=== PATIENT | female | born 1970 | race African-American/Black ===

== ENCOUNTER 2017-04-06 16:30 | Emergency (ER) | payer OTHER ==
[2017-04-06 17:09] LABS: #Monocytes 0.4 thou/uL (0.11-0.59); #Neutrophils 2.3 thou/uL (1.40-6.50); %Basophils 0.4 % (0.0-1.0); %Eosinophils 0.9 % (0.0-10.0); %Lymphocytes 41.6 % (21.0-51.0); %Monocytes 8.4 % (0.0-10.0); Mean Platelet Volume 7.8 fL (7.4-10.4); Red Blood Cell (RBC) Count 4.26 mill/uL (4.20-5.40); White Blood Cell (WBC) Count 4.7 thou/uL (4.8-10.8)
[2017-04-06 17:11] LABS: Bilirubin Negative (Negative); Blood, Urine Negative (Negative); Glucose, Urine (Dipstick) Negative (Negative); Ketone, Urine Negative (Negative); Nitrite Negative (Negative); Protein, Urine (Dipstick) Negative (Neg-Trace); Urobilinogen 0.2 mg/dL (0.2-1.0)
[2017-04-06 17:15] LABS: Prothrombin Time 32.4 SEC (12.0-14.7)
[2017-04-06 17:29] LABS: ALT (SGPT) 15 U/L (8-55); AST (SGOT) 17 U/L (5-34); Alkaline Phosphatase 87 U/L (40-150); Anion Gap 11 mmol/L (10-20); BUN (Urea Nitrogen) 9 mg/dL (7.0-18.7); Bilirubin, Total 0.2 mg/dL (0.2-1.2); Calc. Creatinine Clearance 0 mL/min (70-130); Calcium 9.3 mg/dL (7.8-10.44); Carbon Dioxide 26 mmol/L (22-29); Chloride 105 mmol/L (98-107); Estimated GFR-MDRD 76; Globulin 4.3 g/dL (2.4-3.5); Protein, Total 8.2 g/dL (6.0-8.3)
== END 2017-04-06 18:52 | disposition home or self-care (01) ==
LOC: ERS 16:30
DX: M54.5 Low back pain (principal); I10 Essential (primary) hypertension; J45.909 Unspecified asthma, uncomplicated; Z86.73 Personal history of transient ischemic attack (TIA), and cerebral infarction without residual deficits; F31.9 Bipolar disorder, unspecified; Z86.718 Personal history of other venous thrombosis and embolism; Z79.899 Other long term (current) drug therapy; Z79.01 Long term (current) use of anticoagulants
CPT/HCPCS: 36415; 80053; 81003; 85025; 85610; 87086

== ENCOUNTER 2017-06-20 19:38 | Emergency (ER) | payer OTHER ==
[2017-06-20] MEDS ORDERED: Acetaminophen 500 MG TAB ONE (19:55)
[2017-06-20] MEDS ORDERED: Dexamethasone 10 MG/ML VIAL ONE (21:12)
--- NOTE | 2017-06-20 21:13 | RAD ---
PA AND LATERAL CHEST: Indication: History of cough and fever. Comparison: 10-18-14 FINDINGS: Lungs are clear. Cardiomediastinal silhouette is within normal limits. No acute osseous abnormality i s evident. IMPRESSION: No acute cardiopulmonary abnormality. POS: [facility]
== END 2017-06-20 20:52 | disposition home or self-care (01) ==
LOC: ERS 19:38
DX: J40 Bronchitis, not specified as acute or chronic (principal); I10 Essential (primary) hypertension; F31.9 Bipolar disorder, unspecified; F41.9 Anxiety disorder, unspecified; Z86.73 Personal history of transient ischemic attack (TIA), and cerebral infarction without residual deficits
CPT/HCPCS: 71046; 87804; 96372; J1100

== ENCOUNTER 2017-08-10 13:43 | Outpatient (CLI) | payer OTHER ==
--- NOTE | 2017-08-10 14:41 | ULT ---
LEFT LOWER EXTREMITY VENOUS DUPLEX ULTRASOUND INCLUDING COLOR AND SPECTRAL DOPPLER IMAGING: History: 47-year-old female with history of left leg edema and pain. FINDINGS: Exam performed from groin to ankle including visualized greater saphenous, common femoral, superficia l femoral, profunda femoral, popliteal, trifurcation and posterior tibial vein regions. There is norm al phasic flow with normal compressibility and normal augmentation. No intraluminal thrombus. IMPRESSION: 1. No evidence of deep venous thrombosis. Stable from prior study. POS: [facility]
== END 2017-08-10 13:44 | disposition home or self-care (01) ==
LOC: ULT 13:43
PROVIDERS: ATTEND Nurse Practitioner Family
DX: R60.0 Localized edema (principal)

== ENCOUNTER 2017-08-11 20:26 | Emergency (ER) | payer OTHER ==
[2017-08-11 20:54] LABS: #Eosinphils 0.3 thou/uL (0.0-0.7); #Lymphocytes 1.4 thou/uL (1.20-3.40); #Monocytes 0.5 thou/uL (0.11-0.59); #Neutrophils 4.1 thou/uL (1.40-6.50); %Basophils 0.7 % (0.0-1.0); %Eosinophils 4.1 % (0.0-10.0); %Lymphocytes 22.7 % (21.0-51.0); %Monocytes 8.1 % (0.0-10.0); %Neutrophils 64.4 % (42.0-75.0); Hemoglobin 12.9 g/dL (12.0-16.0); Mean Corpuscular HGB CONC 32.2 g/dL (32.0-36.0); Mean Corpuscular Hemoglobin 30.9 pg (27.0-31.0); Mean Corpuscular Volume 95.9 fl (81.0-99.0); Mean Platelet Volume 8.2 fL (7.4-10.4); Platelet Count 233 thou/uL (130-400); RBC Distribution Width 11.6 % (11.5-14.5); Red Blood Cell (RBC) Count 4.19 mill/uL (4.20-5.40); White Blood Cell (WBC) Count 6.4 thou/uL (4.8-10.8)
[2017-08-11 20:59] LABS: INR-International Normal Ratio 2.6; Prothrombin Time 29.3 SEC (12.0-14.7)
[2017-08-11 21:00] LABS: PTT 48.7 SEC (22.9-36.1)
[2017-08-11 21:16] LABS: ALT (SGPT) 13 U/L (8-55); AST (SGOT) 19 U/L (5-34); Albumin 4.1 g/dL (3.5-5.0); Alkaline Phosphatase 83 U/L (40-150); Anion Gap 12 mmol/L (10-20); BUN (Urea Nitrogen) 17 mg/dL (7.0-18.7); Bilirubin, Total 0.2 mg/dL (0.2-1.2); Calc. Creatinine Clearance 0 mL/min (70-130); Calcium 9.5 mg/dL (7.8-10.44); Carbon Dioxide 27 mmol/L (22-29); Chloride 105 mmol/L (98-107); Estimated GFR-MDRD 69; Globulin 4.3 g/dL (2.4-3.5); Glucose 108 mg/dL (70-105); Potassium 4.1 mmol/L (3.5-5.1); Protein, Total 8.4 g/dL (6.0-8.3); Sodium 140 mmol/L (136-145)
== END 2017-08-11 21:35 | disposition home or self-care (01) ==
LOC: ERS 20:26
DX: R04.0 Epistaxis (principal); I10 Essential (primary) hypertension; J45.909 Unspecified asthma, uncomplicated; F31.9 Bipolar disorder, unspecified; F41.9 Anxiety disorder, unspecified; Z86.718 Personal history of other venous thrombosis and embolism; Z79.899 Other long term (current) drug therapy
CPT/HCPCS: 36415; 80053; 85025; 85610; 85730; 99283

== ENCOUNTER 2017-08-16 07:29 | Emergency (ER) | payer OTHER ==
--- NOTE | 2017-08-16 08:12 | RAD ---
PA AND LATERAL CHEST RADIOGRAPH: Date: 08-16-17 History: Cough, trouble breathing. Comparison: 06-20-17 FINDINGS: The cardiac silhouette and pulmonary vasculature are within normal limits. The lungs remain clear. Th ere has been no interval change from the prior study. IMPRESSION: No acute cardiopulmonary process. POS: [facility]
[2017-08-16 08:15] LABS: #Basophils 0.1 thou/uL (0.0-0.2); #Eosinphils 0.3 thou/uL (0.0-0.7); #Lymphocytes 2.2 thou/uL (1.20-3.40); #Monocytes 0.5 thou/uL (0.11-0.59); #Neutrophils 1.4 thou/uL (1.40-6.50); %Basophils 1.8 % (0.0-1.0); %Eosinophils 7.5 % (0.0-10.0); %Lymphocytes 49.2 % (21.0-51.0); %Monocytes 11.1 % (0.0-10.0); %Neutrophils 30.4 % (42.0-75.0); Mean Corpuscular HGB CONC 32.5 g/dL (32.0-36.0); Mean Corpuscular Hemoglobin 31.2 pg (27.0-31.0); Mean Platelet Volume 7.6 fL (7.4-10.4); Platelet Count 244 thou/uL (130-400); RBC Distribution Width 11.8 % (11.5-14.5); Red Blood Cell (RBC) Count 4.18 mill/uL (4.20-5.40); White Blood Cell (WBC) Count 4.5 thou/uL (4.8-10.8)
[2017-08-16 08:43] LABS: ALT (SGPT) 12 U/L (8-55); AST (SGOT) 16 U/L (5-34); Albumin 3.9 g/dL (3.5-5.0); Alkaline Phosphatase 74 U/L (40-150); Anion Gap 11 mmol/L (10-20); BUN (Urea Nitrogen) 14 mg/dL (7.0-18.7); Bilirubin, Total 0.3 mg/dL (0.2-1.2); Calc. Creatinine Clearance 0 mL/min (70-130); Calcium 9.2 mg/dL (7.8-10.44); Carbon Dioxide 28 mmol/L (22-29); Chloride 106 mmol/L (98-107); Estimated GFR-MDRD 73; Globulin 3.9 g/dL (2.4-3.5); Glucose 89 mg/dL (70-105); Potassium 3.8 mmol/L (3.5-5.1); Protein, Total 7.8 g/dL (6.0-8.3); Sodium 141 mmol/L (136-145)
== END 2017-08-16 10:45 | disposition home or self-care (01) ==
LOC: ERS 07:29
DX: B34.9 Viral infection, unspecified (principal); I10 Essential (primary) hypertension; F31.9 Bipolar disorder, unspecified; F41.9 Anxiety disorder, unspecified; J45.909 Unspecified asthma, uncomplicated; Z86.73 Personal history of transient ischemic attack (TIA), and cerebral infarction without residual deficits; Z86.718 Personal history of other venous thrombosis and embolism
CPT/HCPCS: 36415; 71046; 80053; 85025; 94640; 96360; 96361; J7620

== ENCOUNTER 2017-12-05 19:02 | Emergency (ER) | payer OTHER ==
[~2017-12-05 19:02] MED LIST: ISOVUE-370 76%-LOCM 1 ML ONE
[2017-12-05 19:32] LABS: #Basophils 0.1 thou/uL (0.0-0.2); #Eosinphils 0.1 thou/uL (0.0-0.7); #Monocytes 0.5 thou/uL (0.11-0.59); #Neutrophils 2.8 thou/uL (1.40-6.50); %Basophils 1.2 % (0.0-1.0); %Eosinophils 1.3 % (0.0-10.0); %Lymphocytes 37.5 % (21.0-51.0); %Monocytes 9.5 % (0.0-10.0); %Neutrophils 50.5 % (42.0-75.0); Hemoglobin 13.5 g/dL (12.0-16.0); Mean Corpuscular Hemoglobin 30.9 pg (27.0-31.0); Mean Corpuscular Volume 93.7 fl (81.0-99.0); Mean Platelet Volume 8.8 fL (7.4-10.4); Platelet Count 212 thou/uL (130-400); RBC Distribution Width 11.7 % (11.5-14.5); Red Blood Cell (RBC) Count 4.38 mill/uL (4.20-5.40); White Blood Cell (WBC) Count 5.5 thou/uL (4.8-10.8)
[2017-12-05 19:32] LABS: Bilirubin Negative (Negative); Blood, Urine Negative (Negative); Clarity CLEAR (Clear); Glucose, Urine (Dipstick) Negative (Negative); Leukocyte Negative (Negative); Nitrite Negative (Negative); Protein, Urine (Dipstick) Negative (Neg-Trace)
[2017-12-05 19:37] LABS: INR-International Normal Ratio 2.4
[2017-12-05 19:51] LABS: ALT (SGPT) 12 U/L (8-55); AST (SGOT) 17 U/L (5-34); Albumin 4.2 g/dL (3.5-5.0); Alkaline Phosphatase 86 U/L (40-150); Anion Gap 11 mmol/L (10-20); BUN (Urea Nitrogen) 13 mg/dL (7.0-18.7); Bilirubin, Total 0.3 mg/dL (0.2-1.2); Calc. Creatinine Clearance 0 mL/min (70-130); Calcium 9.9 mg/dL (7.8-10.44); Carbon Dioxide 27 mmol/L (22-29); Chloride 105 mmol/L (98-107); Estimated GFR-MDRD 70; Globulin 4.3 g/dL (2.4-3.5); Glucose 100 mg/dL (70-105); Potassium 4.1 mmol/L (3.5-5.1); Protein, Total 8.5 g/dL (6.0-8.3); Sodium 139 mmol/L (136-145)
[2017-12-05] MEDS ORDERED: Ondansetron ODT 8 MG TAB ONE (21:50)
--- NOTE | 2017-12-05 22:05 | CT ---
CT ABDOMEN WITH CONTRAST CT PELVIS WITH CONTRAST: DATE: 12/05/2017 TIME: 9:16 p.m. HISTORY: A 47-year-old female with left flank pain for one week with nausea. COMPARISON: 05/11/2004 TECHNIQUE: IV injection of iodinated contrast media: Administered. Oral contrast media: Not administered. FINDINGS: Again noted are the surgical clips posterior to the aortic bifurcation and adjacent to the proximal b ilateral common iliac veins. The left common iliac vein is slightly dilated. No major change in thi s area since the previous CT. No major pathology of the abdominal aorta, the bilateral kidneys, the adrenals, the pancreas, the liver, or the spleen. Normal appendix. No small bowel dilation. No sig ns of acute colonic diverticulitis. Empty urinary bladder. No free air or free fluid within the abd ominal cavity or pelvic cavity. The lung bases are clear. No small bowel dilation. IMPRESSION: 1. No acute findings. 2. 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 [place] Mai POS: [facility]
== END 2017-12-05 22:51 | disposition home or self-care (01) ==
LOC: ERS 19:02
DX: R10.12 Left upper quadrant pain (principal); I10 Essential (primary) hypertension; F41.9 Anxiety disorder, unspecified; J45.909 Unspecified asthma, uncomplicated; F31.9 Bipolar disorder, unspecified; Z86.718 Personal history of other venous thrombosis and embolism; Z86.73 Personal history of transient ischemic attack (TIA), and cerebral infarction without residual deficits; Z79.899 Other long term (current) drug therapy; Z79.01 Long term (current) use of anticoagulants
CPT/HCPCS: 36415; 74177; 80053; 81003; 85025; 85610

== ENCOUNTER 2018-04-28 07:53 | Observation (INO) | payer OTHER ==
[2018-04-28 09:11] LABS: #Lymphocytes 1.4 thou/uL (1.20-3.40); #Monocytes 0.4 thou/uL (0.11-0.59); #Neutrophils 2.2 thou/uL (1.40-6.50); %Basophils 1.1 % (0.0-1.0); %Lymphocytes 34.5 % (21.0-51.0); %Monocytes 8.9 % (0.0-10.0); %Neutrophils 54.5 % (42.0-75.0); Hemoglobin 13.5 g/dL (12.0-16.0); Mean Corpuscular HGB CONC 32.2 g/dL (32.0-36.0); Mean Corpuscular Hemoglobin 30.4 pg (27.0-31.0); Mean Corpuscular Volume 94.4 fL (78.0-98.0); Mean Platelet Volume 8.4 fL (7.4-10.4); Platelet Count 226 thou/uL (130-400); Red Blood Cell (RBC) Count 4.44 mill/uL (4.20-5.40)
[2018-04-28 09:13] LABS: Bilirubin Negative (Negative); Blood, Urine Negative (Negative); Clarity CLEAR (Clear); Glucose, Urine (Dipstick) Negative (Negative); Leukocyte Negative (Negative); Nitrite Negative (Negative); Protein, Urine (Dipstick) Negative (Neg-Trace); Specific Gravity, Urine 1.017 (1.002-1.036); Urobilinogen 0.2 mg/dL (0.2-1.0)
[2018-04-28 09:16] LABS: INR-International Normal Ratio 1.5; Prothrombin Time 17.9 SEC (12.0-14.7)
--- NOTE | 2018-04-28 09:23 | RAD ---
PORTABLE CHEST ONE VIEW: Date: 04-28-18 Time: 9:07 a.m. History: Chest pain. FINDINGS: Comparison is made with exam of 02-20-16. The heart size is normal. The lungs are expanded without focal areas of consolidation, pneumothoraces or pleural effusions. IMPRESSION: No radiographic evidence of acute cardiopulmonary process. POS: [facility]
[2018-04-28] MEDS ORDERED: Ondansetron PF 4 MG/2 ML Vial ONE (09:28)
[2018-04-28 09:33] LABS: ALT (SGPT) 15 U/L (8-55); AST (SGOT) 20 U/L (5-34); Albumin 4.1 g/dL (3.5-5.0); Alkaline Phosphatase 75 U/L (40-150); Anion Gap 12 mmol/L (10-20); BUN (Urea Nitrogen) 13 mg/dL (7.0-18.7); Bilirubin, Total 0.3 mg/dL (0.2-1.2); Calc. Creatinine Clearance 0 mL/min (70-130); Calcium 9.7 mg/dL (7.8-10.44); Carbon Dioxide 26 mmol/L (22-29); Chloride 105 mmol/L (98-107); Estimated GFR-MDRD 77; Globulin 4.1 g/dL (2.4-3.5); Glucose 93 mg/dL (70-105); Lipase 14 U/L (8-78); Potassium 4.4 mmol/L (3.5-5.1); Protein, Total 8.2 g/dL (6.0-8.3); Sodium 139 mmol/L (136-145)
[2018-04-28 09:35] LABS: CKMB 0.5 ng/mL (0-6.6); Troponin I Less than 0.010 ng/mL (< 0.028)
--- NOTE | 2018-04-28 09:50 | CT ---
CT ANGIOGRAM CHEST WITH CONTRAST: Date: 04/28/18 HISTORY: Chest pain. Hypertension. Deep venous thrombosis. COMPARISON: None. FINDINGS: CT angiogram chest performed after the intravenous administration of contrast. 3D rendering provided. Evaluation for distal embolism is limited due to delayed phase of contrast. No proximal segmental pulmonary arterial filling defect. No pericardial effusion. Small sliding hiatal hernia. Remainder of upper abdomen is unremarkable. Lungs are clear. No pneumothorax. No focal air space consolidation. No thoracic spine compression fracture. The sternum and manubrium are intact. No acute displaced rib fracture. IMPRESSION: No proximal segmental pulmonary arterial filling defect. No acute intrathoracic abnormality. POS: [facility]
[2018-04-28] MEDS ORDERED: Lidocaine Viscous Sol 2% 15 ml UD Cup ONE (10:57)
[2018-04-28] MEDS ORDERED: Mag-Al 1200 mg/1200 mg/30 ML UDCUP ONE (10:58)
[2018-04-28 11:55] LABS: Troponin I Less than 0.010 ng/mL (< 0.028)
[2018-04-28] MEDS ORDERED: Ondansetron PF 4 MG/2 ML Vial IVP PRN (12:34)
[2018-04-28] MEDS ORDERED: Ondansetron ODT 4 MG TAB PO PRN (12:34)
[2018-04-28] MEDS ORDERED: Eucerin (Mineral Oil/Petrolatum,White) 30 gm Jar TOP PRN (12:34)
[2018-04-28] MEDS ORDERED: Loratadine 10 MG TAB PO PRN (12:34)
[2018-04-28] MEDS ORDERED: hydrALAZINE 20 MG/ML VIAL SLOW IVP PRN (12:34)
[2018-04-28] MEDS ORDERED: Bisacodyl 5 MG TAB PO PRN (12:34)
[2018-04-28] MEDS ORDERED: Acetaminophen 325 MG TAB PO PRN (12:34)
[2018-04-28] MEDS ORDERED: Cepastat Lozenges 1 LOZ PO PRN (12:34)
[2018-04-28] MEDS ORDERED: Bisacodyl 10 MG SUPP PR PRN (12:34)
[2018-04-28] MEDS ORDERED: Senokot S 8.6-50 MG TAB PO PRN (12:34)
[2018-04-28] MEDS ORDERED: Loperamide HCl 2 MG CAP PO PRN (12:34)
[2018-04-28] MEDS ORDERED: Sodium Chloride 0.65% Nasal 44 ML BOT EA NARE PRN (12:34)
[2018-04-28] MEDS ORDERED: Artificial Tears 18 DROP/0.9 ML EA EYE PRN (12:34)
[2018-04-28] MEDS ORDERED: Zolpidem Tartrate 5 MG TAB PO PRN (12:34)
[2018-04-28] MEDS ORDERED: Diabetic Tussin 200 MG/10 ML UDCUP PO PRN (12:34)
--- NOTE | 2018-04-28 13:04 | HP ---
PRIMARY CARE PHYSICIAN: Evelia Montoya NP REASON FOR ADMISSION: Epigastric discomfort. HISTORY OF PRESENT ILLNESS: This is a 47-year-old -Irish female, who has history of hypert ension as well as previous history of recurrent DVT, on chronic anticoagulation with warfarin, who ca me to the emergency room with complaint of epigastric discomfort and heartburn. The patient reports that she has symptoms with nausea, vomiting, heartburn, and epigastric discomfort for last 2 weeks. The patient was trying Tums, Pepcid, and Prilosec nzcp-aft-kaqchzo basis without any clinical improve ment. The patient was experiencing acid reflux in her mouth when she was lying down and that was ini tiating vomiting. She did not have any fever. She did not have any vomiting of blood. She denies a ny melena or hematochezia. She denies any black tarry stools. She denies any weight loss. She does not have any family history of gastric cancer. She denies any smoking. She denies any alcohol abus e. She denies any excessive caffeinated products, and she also denies taking NSAIDs. Patient denies any UTI symptoms. She does not have any exertion-related chest pain. She denies any relation of chest discomfort with respiration or activity. She denies any dizziness or syncope. She denies any orthopnea, PND, or leg swelling. REVIEW OF SYSTEMS: The following complete review of systems was negative, unless otherwise mentioned in the HPI or below: Constitutional: Weight loss or gain, ability to conduct usual activities. Sk in: Rash, itching. Eyes: Double vision, pain. ENT/Mouth: Nose bleeding, neck stiffness, pain, te nderness. Cardiovascular: Palpitations, dyspnea on exertion, orthopnea. Respiratory: Shortness of breath, wheezing, cough, hemoptysis, fever, or night sweats. Gastrointestinal: Poor appetite, abdo wild pain, heartburn, nausea, vomiting, constipation, or diarrhea. Genitourinary: Urgency, frequen cy, dysuria, nocturia. Musculoskeletal: Pain, swelling. Neurologic/Psychiatric: Anxiety, depressi on. Allergy/Immunologic: Skin rash, bleeding tendency. Please see my HPI for pertinent positive an d negative. All other review of systems reviewed and negative except as mentioned in the HPI. ALLERGIES: CIPRO, KEFLEX, SULFA DRUGS. CURRENT HOME MEDICATIONS: Metoprolol tartrate 25 mg twice daily, trazodone 50 mg daily at bedtime, w arfarin 5 mg p.o. at bedtime, Colace 100 mg twice daily. PAST MEDICAL HISTORY: Hypertension, May-Thurner syndrome, seasonal asthma, history of recurrent DVT, chronic anticoagulation with warfarin, history of IVC filter, history of bleeding from kidney. PAST SURGICAL HISTORY: Left knee surgery in 1994, hysterectomy, IVC filter placement, right hand farzad eyad, left ankle surgery, left eye surgery. PAST PSYCHIATRIC HISTORY: Anxiety, depression, bipolar disorder. SOCIAL HISTORY: Patient lives at home. She denies any tobacco, alcohol, or illicit drug abuse. FAMILY HISTORY: Mother has history of deep vein thrombosis and pulmonary embolism. EMERGENCY ROOM COURSE: Patient has received GI cocktail and Zofran 4 mg. PHYSICAL EXAMINATION: VITAL SIGNS: On arrival, blood pressure 120/92, pulse 85, respiratory rate 16, temperature 97.9, sat uration 98% on room air, and weight 88.9 kilograms. GENERAL: Patient is currently alert, awake, in no obvious acute distress. HEENT: Head: Normocephalic and atraumatic. Eyes: Pupils round, reactive to light. Extraocular mu scle intact. ENT: Oropharynx within normal limits. Moist mucous membrane. No oral lesion, no phar yngeal erythema, no exudate. NECK: Supple, no JVD, no thyromegaly, no carotid bruit, no jugular venous distention. LUNGS: Clear to auscultation without any rhonchi or rales. CARDIAC: S1 and S2 regular without any murmur, no gallop, no rub. ABDOMEN: Soft, bowel sounds present. Epigastric discomfort, no Vogt sign, no guarding, no rigidit y, no rebound, no suprapubic tenderness. BACK EXAMINATION: Unremarkable, no CVA tenderness. EXTREMITIES: Upper extremities, passive movement of all joints are normal. Lower extremities, no ed miki. Good distal pulsation, no calf tenderness. SKIN: No skin rash. HEMATOLOGICAL SYSTEM: No lymphadenopathy. NEUROLOGIC: Nonfocal examination. The patient moves all 4 limbs. Plantar bilateral flexor. PSYCHIATRIC: Normal affect. SIGNIFICANT LABORATORY DATA: EKG showing normal sinus rhythm within normal limits. Chest x-ray, [facility] ed on my review, small hiatal hernia. CBC: WBC 4.0, hemoglobin 13.5, platelets 226. INR 1.5. Sodi um 139, potassium 4.4, chloride 105, carbon dioxide 26, BUN 13, creatinine 0.94, glucose 93, and calc ium 9.7. LFT: AST 20, ALT 15, alkaline phosphatase 75, albumin 4.1, lipase 14, CK-MB 0.5, troponin I less than 0.010. BNP 18.1. Urinalysis normal. CT angiography negative for pulmonary embolism. Chest x-ray normal, based on my review. ASSESSMENT AND PLAN: 1. Epigastric pain, substernal discomfort, heartburn, all consistent with gastroesophageal reflux di sease with gastritis, underlying Helicobacter pylori infection needs to be excluded. 2. Chest pain, vague, rule out acute coronary syndrome. Patient's description is mostly towards gas trointestinal etiology. She does not have any cardiac or thromboembolic history. At this point, we will do only treadmill exercise stress test and we will consult Gastroenterology for upper endoscopic evaluation. We will treat her symptoms with Protonix 40 mg IV b.i.d. We will check stool for guaia c. 3. Recurrent thrombosis on chronic anticoagulation with warfarin. We will monitor PT/INR on and we will continue with warfarin as per home dosage. 4. Hypertension. Continue metoprolol 25 mg twice daily. 5. Anxiety, depression, bipolar disorder. Continue trazodone 50 mg p.o. at bedtime. 6. Deep venous thrombosis prophylaxis. The patient is already on warfarin therapy. 7. Gastrointestinal prophylaxis. Protonix 40 mg IV b.i.d. 8. Code status: The patient is FULL CODE. Disposition plan based on clinical course. We are expecting patient's stay in hospital [address] an of care discussed with the patient in detail.
[2018-04-28 15:04] VITALS: BMI 32.3
[2018-04-28 15:45] LABS: Troponin I Less than 0.010 ng/mL (< 0.028)
[2018-04-28] MEDS ORDERED: Iopamidol 370 76% 100 ML VIAL ONE (16:38)
[2018-04-28] MEDS: Metoprolol Tartrate 25 MG TAB PO SCH (19:53)
[2018-04-28] MEDS: Pantoprazole 40 MG VIAL IVP SCH (19:55)
[2018-04-28] MEDS ORDERED: Warfarin Sodium 5 MG TAB PO SCH (21:00)
--- NOTE | 2018-04-29 04:28 | CON ---
DATE OF CONSULTATION: 04/28/2018 GI CONSULTATION CHIEF COMPLAINT: Abdominal pain. HISTORY OF PRESENT ILLNESS: Ms. Richardson is a 47-year-old woman, who has had burning epigastric sever e pain for the last 2 weeks that radiates through to her back and radiates up towards her substernal region. The pain is worse at night when she lies down. She has early satiety after eating. The lg n has been pretty constant and lasting for hours per day. She has had no vomiting, but she has had s ome nausea. No diarrhea or constipation or blood in the stool. She has taken Tums without much help . She started Prilosec 2 days ago, but this has not helped yet. She came into the emergency room to day and was admitted and underwent a treadmill stress test, which was normal. She takes warfarin for history of DVT, and her last dose was this evening. PAST MEDICAL HISTORY: Hypertension, DVT, IVC filter, asthma, May-Thurner syndrome, adenomatous 1 cm colon polyp removed in 07/2013. Followup colonoscopy was recommended for [address] Echevarria perform ed a procedure for her. TIA and depression. PAST SURGICAL HISTORY: Hysterectomy, knee surgery, eye surgery, ankle surgery, hand surgery. FAMILY HISTORY: She had a grandfather with colon cancer. HABITS: No alcohol, tobacco or drugs. ALLERGIES: CIPRO, KEFLEX, SULFA. OUTPATIENT MEDICATIONS: As an outpatient include warfarin, metoprolol, trazodone, Colace. REVIEW OF SYSTEMS: Negative x10 systems reviewed except as stated in the history of present illness. PHYSICAL EXAMINATION: VITAL SIGNS: Temperature 97.9, pulse 95, blood pressure 108/66. GENERAL: She is in no acute distress, alert and oriented x3. HEENT: Eyes have no scleral icterus. Oropharynx is clear, without lesions. NECK: No cervical or supraclavicular lymphadenopathy. LUNGS: Clear to auscultation bilaterally. HEART: Regular rate and rhythm without murmur. ABDOMEN: Soft. She does have tenderness in the epigastric region, but not the right upper quadrant. Bowel sounds are present. EXTREMITIES: No lower extremity edema. NEUROLOGIC: Her left eye is deviated to the left, but otherwise, her cranial nerves are grossly inta ct. LABORATORY DATA: White blood cell count 4.0, hemoglobin 13.5, platelets 226. INR 1.5. Creatinine 0 .94, bilirubin 0.3, AST 20, ALT 15, alkaline phosphatase 75, albumin 4.1, lipase 14. IMPRESSION: 1. Epigastric burning pain that radiates to her substernal region, worse when she is lying down with early satiety all suggests esophagitis or peptic ulcer. She just started Prilosec 2 days ago and is on Protonix now. Her symptoms have continued. She does have a gallbladder; however, symptoms are n ot really suggestive of gallbladder dysfunction as the primary etiology. She does not have dysphagia . 2. History of adenomatous colon polyp. 3. History of recurrent deep venous thrombosis, on anticoagulation with warfarin. Her INR was 1.5 t his morning. RECOMMENDATIONS: 1. Continue pantoprazole. 2. She did receive warfarin this evening; however, her INR was only 1.5 this morning, so we could po tentially follow through with upper endoscopy tomorrow. She can come back as an outpatient and get h er routine colonoscopy with Dr. Echevarria as she has been previously advised. I did encourage her to meche edule this appointment, which she appears willing to do. I will schedule upper endoscopy for tomorro w and recheck the INR in the morning.
[2018-04-29 04:47] LABS: Cardiac Risk 4.7 (Less than 4.5)
[2018-04-29 05:01] LABS: INR-International Normal Ratio 1.5; Prothrombin Time 18.5 SEC (12.0-14.7)
[2018-04-29] MEDS: HYDROcodone/Acetaminophen 5/325 mg Tablet PO PRN ×2 (07:00→17:27)
--- NOTE | 2018-04-29 09:21 | PDOC.PN ---
- Subjective Encounter Start Date: 04/29/18 Encounter Start Time: 07:20 -: old records requested/rev Patient seen and examined. No new complaints. No overnight events - Objective Resuscitation Status: Resuscitation Status FULL:Full Resuscitation MAR Reviewed: Yes Vital Signs & Weight: Vital Signs (12 hours) Temp Pulse Resp BP BP Pulse Ox 04/29/18 08:06 98.4 F 63 20 116/71 100 04/29/18 02:56 97.6 F 64 20 122/81 97 04/28/18 23:50 98.1 F 70 12 118/71 98 Weight Weight 194 lb 11.2 oz I&O: 04/28/18 04/29/18 04/30/18 06:59 06:59 06:59 Intake Total 650 Balance 650 Result Diagrams: 04/28/18 08:52 04/28/18 08:52 EKG Reviewed by me: Yes (nsr) Phys Exam - Physical Examination Constitutional: NAD HEENT: PERRLA, moist MMs, sclera anicteric Neck: no JVD, supple Respiratory: no wheezing, no rales, no rhonchi Cardiovascular: RRR, no significant murmur, no rub Gastrointestinal: soft, non-tender, no distention, positive bowel sounds Musculoskeletal: no edema, pulses present Neurological: non-focal, normal sensation, moves all 4 limbs Psychiatric: normal affect, A&O x 3 Skin: no rash, normal turgor Dx/Plan (1) Chest pain due to gastrointestinal reflux disease Code(s): R07.9 - CHEST PAIN, UNSPECIFIED; K21.9 - GASTRO-ESOPHAGEAL REFLUX DISEASE WITHOUT ESOPHAGITIS Status: Acute (2) Chronic anticoagulation Code(s): Z79.01 - [employer] (CURRENT) USE OF ANTICOAGULANTS Status: Chronic (3) H/O deep venous thrombosis Code(s): Z86.718 - PERSONAL HISTORY OF OTHER VENOUS THROMBOSIS AND EMBOLISM Status: Chronic (4) Hypertension Code(s): I10 - ESSENTIAL (PRIMARY) HYPERTENSION Status: Chronic (5) Obesity (BMI 30.0-34.9) Code(s): E66.9 - OBESITY, UNSPECIFIED Status: Chronic - Plan cont current plan of care * stress test is negative * today EGD, after that will discharge on oral protonix * medication reviewed as below * symptomatic treatment. Review of Systems - Review of Systems ENT: negative: Ear Pain, Ear Discharge, Nose Pain, Nose Discharge, Nose Congestion, Mouth Pain, Mouth Swelling, Throat Pain, Throat Swelling, Other Respiratory: negative: Cough, Dry, Shortness of Breath, Hemoptysis, SOB with Excertion, Pleuritic Pain, Sputum, Wheezing Cardiovascular: negative: chest pain, palpitations, orthopnea, paroxysmal nocturnal dyspnea, edema, light headedness, other Gastrointestinal: negative: Nausea, Vomiting, Abdominal Pain, Diarrhea, Constipation, Melena, Hematochezia, Other Genitourinary: negative: Dysuria, Frequency, Incontinence, Hematuria, Retention , Other Musculoskeletal: negative: Neck Pain, Shoulder Pain, Arm Pain, Back Pain, Hand Pain, Leg Pain, Foot Pain, Other Skin: negative: Rash, Lesions, Peter, Bruising, Other - Medications/Allergies Allergies/Adverse Reactions: Allergies Allergy/AdvReac Type Severity Reaction Status Date / Time cephalexin monohydrate Allergy Anaphylaxis Verified 11/20/16 22:55 [From Keflex] ciprofloxacin Allergy Anaphylaxis Verified 11/20/16 22:55 Sulfa (Sulfonamide Allergy Anaphylaxis Verified 11/20/16 22:55 Antibiotics) Medications: Current Medications Acetaminophen (Tylenol) 650 mg PO Q4H PRN PRN Reason: Headache/Fever/Mild Pain (1-3) Last Admin: 04/28/18 19:24 Dose: 650 mg Hydrocodone Bitart/Acetaminophen ([place] 5/325) 1 tab PO Q4H PRN PRN Reason: Moderate Pain (4-6) Last Admin: 04/29/18 07:00 Dose: 1 tab Artificial Tears (Tears Naturale) 2 drop EA EYE PRN PRN PRN Reason: Dry Eyes Bisacodyl (Dulcolax) 10 mg PO DAILYPRN PRN PRN Reason: Constipation Bisacodyl (Dulcolax) 10 mg MT DAILYPRN PRN PRN Reason: Constipation Guaifenesin (Robitussin Sf) 200 mg PO Q4H PRN PRN Reason: Cough Hydralazine HCl (Apresoline) 10 mg SLOW IVP Q4H PRN PRN Reason: SBP > 180 and HR < 70 Loperamide HCl (Imodium) 2 mg PO PRN PRN PRN Reason: Diarrhea/Loose Stools Loratadine (Claritin) 10 mg PO DAILYPRN PRN PRN Reason: Sinus Symptoms Metoprolol Tartrate (Lopressor) 25 mg PO BID [facility] Last Admin: 04/28/18 19:53 Dose: 25 mg Mineral Oil/White Petrolatum (Eucerin Cream) 0 gm TOP BIDPRN PRN PRN Reason: Dry Skin Ondansetron HCl (Zofran Odt) 4 mg PO Q6H PRN PRN Reason: Nausea/Vomiting Ondansetron HCl (Zofran) 4 mg IVP Q6H PRN PRN Reason: Nausea/Vomiting Pantoprazole Sodium (Protonix) 40 mg IVP Q12HR [facility] Last Admin: 04/28/18 19:55 Dose: 40 mg Senna/Docusate Sodium (Senokot S) 2 tab PO BID PRN PRN Reason: Constipation Sodium Chloride ([place] Nasal [place] 0.65%) 0 ml EA NARE QIDPRN PRN PRN Reason: Nasal Congestion Sodium Chloride (Flush - Normal Saline) 10 ml IVF PRN PRN PRN Reason: Saline Flush Last Admin: 04/28/18 19:54 Dose: 10 ml Throat Lozenges (Cepastat Lozenges) 1 mame PO Q2H PRN PRN Reason: Sore Throat Warfarin Sodium (Coumadin) 5 mg PO [facility] Last Admin: 04/28/18 19:53 Dose: 5 mg Zolpidem Tartrate (Ambien) 5 mg PO HSPRN PRN PRN Reason: Insomnia
[2018-04-29] MEDS: Pantoprazole 40 MG VIAL IVP SCH ×2 (09:35→20:23)
[2018-04-29] MEDS ORDERED: PROPOFOL 200 MG/20 ML VIAL ONE (10:07)
[2018-04-29] MEDS: Metoprolol Tartrate 25 MG TAB PO SCH ×2 (10:21→20:23)
--- NOTE | 2018-04-29 10:33 | DIS ---
DATE OF ADMISSION: 04/28/2018 DATE OF DISCHARGE: 04/29/2018 PRIMARY CARE PHYSICIAN: Evelia Montoya NP. DISCHARGE DISPOSITION: Home. PRIMARY DISCHARGE DIAGNOSIS: Chest pain due to gastroesophageal reflux disease. SECONDARY DISCHARGE DIAGNOSES: Obesity with BMI 32, hypertension, history of deep venous thrombosis, chronic anticoagulation with warfarin. PRIMARY PROCEDURE AND OPERATION: EGD. RADIOLOGICAL INVESTIGATION: Chest x-ray normal. CT angiography negative for PE. SIGNIFICANT LABORATORY DATA: WBC 4.0, hemoglobin 13.5, platelet 226. INR 1.5. Sodium 139, creatini ne 0.94. LFT normal. Cardiac enzymes negative x3. BNP 18.1. LDL 143, lipase 14. Urinalysis andrey l. Stool for guaiac negative. DISCHARGE MEDICATIONS: Protonix 40 mg p.o. b.i.d., warfarin 5 mg p.o. at bedtime, trazodone 50 mg p. o. at bedtime p.r.n., metoprolol 25 mg p.o. b.i.d., Lipitor 10 mg p.o. at bedtime. CONTRAINDICATIONS: None. CODE STATUS: FULL CODE. INPATIENT CONSULTANTS: Dr. Walker was consulted while in hospital. TEST RESULTS PENDING ON DISCHARGE: EGD report. DISCHARGE PLAN: Post hospital, the patient will follow up with primary care physician. HOSPITAL COURSE: A 47-year-old female who came to emergency room with complaint of chest pain. Her chest pain description was consistent with acid reflux. During this admission, the patient was obser estefany on telemetry floor. Her EKG was unremarkable. We did serial cardiac enzymes that were negative. The patient underwent treadmill exercise stress test, which was normal. We consulted Gastroenterjie johnson for evaluation for EGD and that will be done today. After that, the patient will be discharged h ome. The patient has elevated LDL and that is why we started Lipitor 10 mg p.o. at bedtime. Rest of medications she will continue upon discharge. The patient is seen and examined at bedside today. Please see my progress note from today for furthe r detail.
--- NOTE | 2018-04-29 12:56 | OP ---
DATE OF PROCEDURE: 04/29/2018 PROCEDURE: Esophagogastroduodenoscopy with biopsy. PREOPERATIVE DIAGNOSIS: Epigastric pain, radiating up to the substernal area. OPERATIVE NOTE: Informed consent was obtained from the patient. She was sedated with total intraven ous anesthesia. The bite block was placed and the endoscope was advanced easily to the second portio n of the duodenum and retroflexion was performed in the stomach. The esophagus was normal. The GE j unction was normal. The stomach was normal including retroflexed views. Antral biopsies were obtain ed to rule out H. pylori. There was mild erythematous duodenitis in the first portion of the duodenu m. The second portion of the duodenum was normal. IMPRESSION: 1. Mild erythematous duodenitis in the first portion of the duodenum. 2. Otherwise normal esophagogastroduodenoscopy. Gastric biopsies taken to rule out Helicobacter pyl anam. RECOMMENDATIONS: 1. Ultrasound of the gallbladder tomorrow morning. 2. Hold warfarin today. 3. Continue proton pump inhibitor.
[2018-04-30] MEDS: HYDROcodone/Acetaminophen 5/325 mg Tablet PO PRN ×2 (01:52→16:54)
--- NOTE | 2018-04-30 08:23 | ULT ---
ULTRASOUND GALLBLADDER RIGHT UPPER QUADRANT: Date: 04/30/18 HISTORY: Epigastric pain. COMPARISON: None. FINDINGS: Real-time [place] scale and color evaluation of the right upper quadrant of the abdomen was performed. T here is mild increased hepatic echotexture suggesting steatosis. There is cholelithiasis. Gallbladder wall thickness upper limits of normal. No significant pericholecystic fluid. Right kidney measures 10.1 x 3.7 x 5.0 cm without mass, hydronephrosis, or abnormal calcifications. S onographic Vogt's sign is negative. IMPRESSION: Cholelithiasis with wall thickness upper limits of normal. Clinical correlation advised. This may ref lect early cholecystitis or symptomatic cholelithiasis. POS: [facility]
[2018-04-30] MEDS: Pantoprazole 40 MG VIAL IVP SCH (08:43)
[2018-04-30] MEDS: Metoprolol Tartrate 25 MG TAB PO SCH (08:43)
[2018-04-30] MEDS ORDERED: Ketorolac Tromethamine 30 MG/ML VIAL ONE (09:54)
[2018-04-30] MEDS ORDERED: Ondansetron PF 4 MG/2 ML Vial ONE (09:54)
[2018-04-30] MEDS ORDERED: PROPOFOL 200 MG/20 ML VIAL ONE (09:54)
[2018-04-30] MEDS ORDERED: PHENYLEPHRINE-NS 100 MCG/ML 10 ML SYRINGE ONE (09:54)
[2018-04-30] MEDS ORDERED: Glycopyrrolate 0.2 MG/ML 5 ML SYRINGE ONE (09:54)
[2018-04-30] MEDS ORDERED: Dexamethasone 20 MG/5 ML VIAL ONE (09:54)
[2018-04-30] MEDS ORDERED: ePHEDrine/0.9% NaCl/PF SYRINGE 50 mg/10 ml ONE (09:54)
[2018-04-30] MEDS ORDERED: Lidocaine 1% PF 5 ML VIAL ONE (09:54)
--- NOTE | 2018-04-30 10:03 | CON-2 ---
DATE OF CONSULTATION: 04/30/2018 REQUESTING PHYSICIAN: Dr. Galarza. HISTORY OF PRESENT ILLNESS: Dhara Richardson is a 47-year-old female, who presented to [facility] with a chief complaint of 1-2 weeks of abdominal and chest pain. Pain is described as a b urning sensation that begins in the epigastric area and radiates to the chest, right upper quadrant a nd left upper quadrant areas. It is occasionally worsened with oral intake and improved with positio n changes, associated with nausea, early satiety, constipation. Last BM approximately one day prior to admission. The patient was initially admitted to rule out ACS with concerns for GERD. A stress t est performed after admission was negative. She underwent EGD, which demonstrated signs of duodeniti s, but no evidence of ulcers. An abdominal ultrasound revealed cholelithiasis. Surgical team was co nsulted for further recommendations. Upon my evaluation, the patient states that her pain is control led. She has been n.p.o. since midnight. ALLERGIES: CIPRO, KEFLEX, and SULFA, all resulting in hives. 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 HOME MEDICATIONS: Include metoprolol 25 mg b.i.d. and warfarin 5 mg at bedtime. PAST SURGICAL HISTORY: Significant for left eye surgery, left knee surgery, left ankle surgery, hyst erectomy, and arteriovenous reconstruction. 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 Endorses social alcohol use. Denies tobacco or illicit drug use. FAMILY HISTORY: Significant for mother with DVT, PE, chronic kidney disease. Father with coronary a rtery disease and a sister with coronary artery disease and chronic kidney disease. REVIEW OF SYSTEMS: A 10-point review of systems was performed and negative except as indicated in th e HPI. PHYSICAL EXAMINATION: VITAL SIGNS: Temperature 98.4, pulse 64, respirations 20, O2 sat 100% on room air, blood pressure 12 0/72. GENERAL: A well-developed female in no acute distress, resting in bed. HEAD: Normocephalic and atraumatic. EYES: Pupils are PERRL. Extraocular movements are intact. PULMONARY: Normal work of breathing and symmetric rise. LUNGS: Clear to auscultation bilaterally. CARDIOVASCULAR: Regular rate and rhythm. No obvious murmurs, rubs, or gallops. ABDOMEN: Soft with tenderness to superficial or deep palpation of the right upper quadrant and left upper quadrant. There is no guarding, rigidity, or rebound tenderness. There is no palpable organom egaly. MUSCULOSKELETAL: Moves all extremities x4. NEUROLOGIC: No focal deficit noted. LABORATORY FINDINGS: WBC is 4.0, hemoglobin 13.5, hematocrit 41.9, platelet count 226. INR is 1.5. Chemistry from 04/28/2018, sodium 139, potassium 4.4, chloride 105, carbon dioxide 26, BUN 13, creat inine 0.94, glucose 93. AST and ALT within normal limits. RADIOGRAPHIC FINDINGS: CT of the chest and thorax on admission demonstrated no evidence of pulmonary embolism and a small hiatal hernia. Ultrasound of the abdomen demonstrated cholelithiasis. Common bile duct was within normal limits with gallbladder wall thickness at the upper limits of normal. ASSESSMENT: 1. Cholelithiasis. 2. Abdominal pain, possibly secondary to above. PLAN: Given patient's symptomatology and ultrasound, we would recommend laparoscopic cholecystectomy at this time. The patient has been n.p.o. since midnight. She has not been on her Coumadin and INR is less than 2.0. Risks and benefits of surgery were discussed with the patient. Plan of care was discussed and all questions were answered at the time of this dictation. Patient has been discussed with Dr. Burciaga, who agrees with my assessment and plan will speak with the patient individually prior to surgery. Thank you Dr. Galarza for this consult. We will follow this patient with you.
[2018-04-30 10:04] LABS: #Basophils 0.1 thou/uL (0.0-0.2); #Eosinphils 0.1 thou/uL (0.0-0.7); #Lymphocytes 1.3 thou/uL (1.20-3.40); #Monocytes 0.3 thou/uL (0.11-0.59); #Neutrophils 1.7 thou/uL (1.40-6.50); %Basophils 1.8 % (0.0-1.0); %Eosinophils 2.4 % (0.0-10.0); %Lymphocytes 37.4 % (21.0-51.0); %Monocytes 9.1 % (0.0-10.0); %Neutrophils 49.3 % (42.0-75.0); Hemoglobin 13.8 g/dL (12.0-16.0); Mean Corpuscular HGB CONC 32.1 g/dL (32.0-36.0); Mean Corpuscular Hemoglobin 30.7 pg (27.0-31.0); Mean Corpuscular Volume 95.9 fL (78.0-98.0); Mean Platelet Volume 8.3 fL (7.4-10.4); Platelet Count 218 thou/uL (130-400); Red Blood Cell (RBC) Count 4.48 mill/uL (4.20-5.40); White Blood Cell (WBC) Count 3.5 thou/uL (4.8-10.8)
--- NOTE | 2018-04-30 10:10 | PDOC.PN ---
- Subjective Encounter Start Date: 04/30/18 Encounter Start Time: 07:20 Patient seen and examined. No new complaints. No overnight events pt has RUQ pain - Objective Resuscitation Status: Resuscitation Status FULL:Full Resuscitation MAR Reviewed: Yes Vital Signs & Weight: Vital Signs (12 hours) Temp Pulse Resp BP BP Pulse Ox 04/30/18 07:16 98.4 F 64 20 120/72 100 04/30/18 03:58 98 F 66 20 108/56 L 98 Weight Weight 194 lb 11.2 oz I&O: 04/29/18 04/30/18 05/01/18 06:59 06:59 06:59 Intake Total 650 490 240 Balance 650 490 240 Result Diagrams: 04/30/18 09:52 04/28/18 08:52 Radiology Reviewed by me: Yes (RUQ US- noted) Phys Exam - Physical Examination Constitutional: NAD HEENT: PERRLA, moist MMs, sclera anicteric Neck: no JVD, supple Respiratory: no wheezing, no rales, no rhonchi Cardiovascular: RRR, no significant murmur, no rub Gastrointestinal: soft, no distention, positive bowel sounds RUQ tenderness Musculoskeletal: no edema, pulses present Neurological: non-focal, normal sensation, moves all 4 limbs Psychiatric: normal affect, A&O x 3 Skin: no rash, normal turgor Dx/Plan (1) Chest pain due to gastrointestinal reflux disease Code(s): R07.9 - CHEST PAIN, UNSPECIFIED; K21.9 - GASTRO-ESOPHAGEAL REFLUX DISEASE WITHOUT ESOPHAGITIS Status: Acute (2) Chronic anticoagulation Code(s): Z79.01 - RETIREMENT (CURRENT) USE OF ANTICOAGULANTS Status: Chronic (3) H/O deep venous thrombosis Code(s): Z86.718 - PERSONAL HISTORY OF OTHER VENOUS THROMBOSIS AND EMBOLISM Status: Chronic (4) Hypertension Code(s): I10 - ESSENTIAL (PRIMARY) HYPERTENSION Status: Chronic (5) Obesity (BMI 30.0-34.9) Code(s): E66.9 - OBESITY, UNSPECIFIED Status: Chronic (6) Cholecystitis with cholelithiasis Code(s): K80.10 - CALCULUS OF GALLBLADDER W CHRONIC CHOLECYST W/O OBSTRUCTION Status: Acute (7) Dyslipidemia Code(s): E78.5 - HYPERLIPIDEMIA, UNSPECIFIED Status: Acute - Plan cont current plan of care * will consult general surgery * keep NPO for now until surgeon see * medication reviewed as below * symptomatic treatment. Review of Systems - Review of Systems Eyes: negative: Pain, Vision Change, Conjunctivae Inflammation, Eyelid Inflammation, Redness, Other ENT: negative: Ear Pain, Ear Discharge, Nose Pain, Nose Discharge, Nose Congestion, Mouth Pain, Mouth Swelling, Throat Pain, Throat Swelling, Other Respiratory: negative: Cough, Dry, Shortness of Breath, Hemoptysis, SOB with Excertion, Pleuritic Pain, Sputum, Wheezing Cardiovascular: negative: chest pain, palpitations, orthopnea, paroxysmal nocturnal dyspnea, edema, light headedness, other Gastrointestinal: Nausea, Abdominal Pain. negative: Vomiting, Diarrhea, Constipation, Melena, Hematochezia, Other Genitourinary: negative: Dysuria, Frequency, Incontinence, Hematuria, Retention , Other Musculoskeletal: negative: Neck Pain, Shoulder Pain, Arm Pain, Back Pain, Hand Pain, Leg Pain, Foot Pain, Other Skin: negative: Rash, Lesions, Peter, Bruising, Other - Medications/Allergies Allergies/Adverse Reactions: Allergies Allergy/AdvReac Type Severity Reaction Status Date / Time cephalexin monohydrate Allergy Anaphylaxis Verified 11/20/16 22:55 [From Keflex] ciprofloxacin Allergy Anaphylaxis Verified 11/20/16 22:55 Sulfa (Sulfonamide Allergy Anaphylaxis Verified 11/20/16 22:55 Antibiotics) Medications: Current Medications Acetaminophen (Tylenol) 650 mg PO Q4H PRN PRN Reason: Headache/Fever/Mild Pain (1-3) Last Admin: 04/28/18 19:24 Dose: 650 mg Hydrocodone Bitart/Acetaminophen ([place] 5/325) 1 tab PO Q4H PRN PRN Reason: Moderate Pain (4-6) Last Admin: 04/30/18 01:52 Dose: 1 tab Artificial Tears (Tears Naturale) 2 drop EA EYE PRN PRN PRN Reason: Dry Eyes Bisacodyl (Dulcolax) 10 mg PO DAILYPRN PRN PRN Reason: Constipation Bisacodyl (Dulcolax) 10 mg [place] DAILYPRN PRN PRN Reason: Constipation Guaifenesin (Robitussin Sf) 200 mg PO Q4H PRN PRN Reason: Cough Hydralazine HCl (Apresoline) 10 mg SLOW IVP Q4H PRN PRN Reason: SBP > 180 and HR < 70 Loperamide HCl (Imodium) 2 mg PO PRN PRN PRN Reason: Diarrhea/Loose Stools Loratadine (Claritin) 10 mg PO DAILYPRN PRN PRN Reason: Sinus Symptoms Metoprolol Tartrate (Lopressor) 25 mg PO BID [facility] Last Admin: 04/30/18 08:43 Dose: 25 mg Mineral Oil/White Petrolatum (Eucerin Cream) 0 gm TOP BIDPRN PRN PRN Reason: Dry Skin Ondansetron HCl (Zofran Odt) 4 mg PO Q6H PRN PRN Reason: Nausea/Vomiting Ondansetron HCl (Zofran) 4 mg IVP Q6H PRN PRN Reason: Nausea/Vomiting Last Admin: 04/30/18 01:53 Dose: 4 mg Pantoprazole Sodium (Protonix) 40 mg IVP Q12HR [facility] Last Admin: 04/30/18 08:43 Dose: 40 mg Senna/Docusate Sodium (Senokot S) 2 tab PO BID PRN PRN Reason: Constipation Last Admin: 04/30/18 04:06 Dose: 2 tab Sodium Chloride ([place] Nasal [place] 0.65%) 0 ml EA NARE QIDPRN PRN PRN Reason: Nasal Congestion Sodium Chloride (Flush - Normal Saline) 10 ml IVF PRN PRN PRN Reason: Saline Flush Last Admin: 04/28/18 19:54 Dose: 10 ml Throat Lozenges (Cepastat Lozenges) 1 mame PO Q2H PRN PRN Reason: Sore Throat Warfarin Sodium (Coumadin) 5 [address] [facility] Last Admin: 04/28/18 19:53 Dose: 5 mg Zolpidem Tartrate (Ambien) 5 mg PO HSPRN PRN PRN Reason: Insomnia
[2018-04-30 10:11] LABS: INR-International Normal Ratio 1.5; PTT 33.7 SEC (22.9-36.1); Prothrombin Time 18.3 SEC (12.0-14.7)
[2018-04-30 10:29] LABS: ALT (SGPT) 14 U/L (8-55); AST (SGOT) 17 U/L (5-34); Alkaline Phosphatase 72 U/L (40-150); Anion Gap 11 mmol/L (10-20); BUN (Urea Nitrogen) 13 mg/dL (7.0-18.7); Bilirubin, Total 0.3 mg/dL (0.2-1.2); Calc. Creatinine Clearance 88 mL/min (70-130); Calcium 9.7 mg/dL (7.8-10.44); Carbon Dioxide 29 mmol/L (22-29); Chloride 102 mmol/L (98-107); Estimated GFR-MDRD 65; Glucose 95 mg/dL (70-105); Potassium 4.6 mmol/L (3.5-5.1); Sodium 137 mmol/L (136-145)
[2018-04-30] MEDS ORDERED: Midazolam HCl 2 mg/2 ml Vial ONE (10:34)
[2018-04-30] MEDS ORDERED: Fentanyl 100 MCG/2 ML VIAL ONE ×4 (10:34→13:23)
[2018-04-30] MEDS ORDERED: Bupivacaine/Epinephrine 0.25% 30 ML VIAL ONE (10:35)
[2018-04-30] MEDS ORDERED: Clindamycin/D5W 900 mg/50 ml Premix Bag ONE (10:53)
[2018-04-30] MEDS ORDERED: Ondansetron HCl/PF 4 MG/2 ML Vial IVP PRN (12:01)
[2018-04-30] MEDS ORDERED: Ketorolac Tromethamine 30 MG/ML VIAL IVP PRN (12:01)
[2018-04-30] MEDS ORDERED: Promethazine HCl 25 MG/ML VIAL SLOW IVP PRN (12:01)
[2018-04-30] MEDS ORDERED: Meperidine HCl/PF 25 MG/ML VIAL SLOW IVP PRN (12:01)
[2018-04-30] MEDS ORDERED: HYDROmorphone 2 MG/ML VIAL SLOW IVP PRN (12:01)
[2018-04-30] MEDS ORDERED: PACU-Morphine 4MG/ML VIAL SLOW IVP PRN (12:01)
[2018-04-30] MEDS ORDERED: Morphine Sulfate 2 MG/ML SYRINGE SLOW IVP PRN (12:01)
[2018-04-30] MEDS ORDERED: Promethazine HCl 25 MG/ML VIAL IM PRN (12:01)
--- NOTE | 2018-04-30 14:09 | OP ---
DATE OF PROCEDURE: 04/30/2018 PREOPERATIVE DIAGNOSES: Acute and chronic cholecystitis with cholelithiasis. POSTOPERATIVE DIAGNOSES: Acute and chronic cholecystitis with cholelithiasis. PROCEDURE PERFORMED: Laparoscopic cholecystectomy. SURGEON: Chaitanya Burciaga D.O. ANESTHESIA: General endotracheal. ESTIMATED BLOOD LOSS: 25 mL. FLUIDS GIVEN: 1500 mL crystalloids. SPONGE AND INSTRUMENT COUNT: Certified as correct x2. COMPLICATIONS: None apparent at time of operation. INDICATIONS FOR PROCEDURE: A 47-year-old -[place] woman presented with recurrent epigastric to right upper quadrant abdominal pain. Clinical radiographic examination was consistent with acute and chronic cholecystitis with cholelithiasis for which patient was brought to the operating room for cholecystectomy. Findings are consistent with gallbladder in the usual anatomic location completely encased by dense omental adhesions. DESCRIPTION OF PROCEDURE: Informed consent obtained from the patient who was brought to the operatin g room and placed in supine position. Following general anesthesia, abdomen is sterilely prepped and draped in usual fashion. Skin below the umbilicus was infiltrated with 0.25% Marcaine with epinephr ine. A small curvilinear infraumbilical incision is made using an 11 scalpel. Umbilical stalk was g rasped with Lacy's and elevated. Veress needle was inserted through the incision and placed in the peritoneal cavity through which the abdomen was insufflated with 3 liters of CO2 gas. Intraabdomina l pressure was noted at 2 mmHg. Following abdominal insufflation, Veress needle was removed and repl aced with a 5 mm trocar, which was introduced using the Visiport under laparoscopy. Laparoscopy conf irmed proper placement of the port, no injuries to underlying structures. Additional laparoscopy rev eals gallbladder in the usual anatomic location completely encased by omental adhesions. Under direc t laparoscopy, a 12 mm epigastric and two 5 mm right lateral subcostal ports were placed after the ov erlying skin were infiltrated with 0.25% Marcaine with epinephrine and appropriate incisions made. T he patient is then placed in the reverse Trendelenburg position, rotated to her left. I introduced t he [place] dissector with cautery, using this to take down omental adhesions off the liver to reveal the fundus of the gallbladder. Prestige grasper introduced through the right lateral subcostal port grasping the fundus of the gallbladder which was elevated cephalad. Omental adhesions were then car efully dissected off from the remainder of the gallbladder. A second Prestige grasper introduced thr ough the right medial subcostal port grasping the Gillespie's pouch which was retracted laterally. An anterior coursing cystic artery was dissected free from surrounding structures at the triangle of Jose ot. The artery was divided between clips applying two clips proximally and one clip at the junction of the cystic artery and gallbladder. The cystic duct was dissected free from surrounding structures and divided between clips in a similar fashion. An enlarged node of Calot is noted. Gallbladder monae rface removed from the liver bed using cautery and delivered of the abdominal cavity using an EndoCat ch. There was minor venous oozing in the gallbladder fossa. Hemostasis was readily achieved using a 1 x 2 inch piece of fibula. Finding no other pathology, laparoscopy was terminated. Fascia of the epigastric port was closed using 0 Vicryl suture and Endo closure device under laparoscopy. Abdomen was desufflated. The remainder of the ports and instruments removed and accounted for. Skin incisio ns closed using 4-0 Monocryl suture in subcuticular fashion. Dermabond was applied over the incision al closure. The patient tolerated this operation without any apparent complication and was returned to recovery room in satisfactory condition.
[2018-04-30 15:34] VITALS: BP 122/70; TEMP 97.6
--- NOTE | 2018-04-30 17:41 | PRG ---
DATE OF SERVICE: 04/30/2018 SUBJECTIVE: Ms. Richardson has some soreness around the surgical sites, but no ongoing pain. OBJECTIVE: ABDOMEN: Soft, without guarding. Bowel sounds are present. IMPRESSION: 1. Cholelithiasis with chronic cholecystitis, status post laparoscopic cholecystectomy today. 2. Epigastric pain and reflux symptoms are likely related to the gallbladder. Endoscopy was basical ly normal. She can continue the pantoprazole for now and wean this off as she tolerates in the futur e. RECOMMENDATIONS: Follow up in GI clinic as needed. I will sign off for now. Please call if GI can be of assistance.
--- NOTE | 2018-05-02 08:32 | ADD-DIS ---
ADDENDUM: This patient was discharged on 04/30/2018. Please see my discharge summary dictated on 04/29/2018. The patient had upper endoscopy which was normal and the patient continued to complain of right upp er quadrant and epigastric pain and that is why ultrasound was ordered. Ultrasound did show cholelit hiasis with cholecystitis and that is why we consulted General Surgery. The patient underwent laparo scopic cholecystectomy and postoperatively the patient did very well and subsequently the patient was discharged home. On discharge the patient was given Tylenol #3 for pain and the rest of medications as per previous. The patient will resume warfarin and she will follow up with Dr. Burciaga as instruct ed.
--- NOTE | 2018-05-05 15:26 | EKG ---
Test Reason : Blood Pressure : / mmHG Vent. Rate : 070 BPM Atrial Rate : 070 BPM P-R Int : 158 ms QRS Dur : 084 ms QT Int : 378 ms P-R-T Axes : 039 -30 -12 degrees QTc Int : 408 ms Normal sinus rhythm Left axis deviation Minimal voltage criteria for LVH, may be normal variant Abnormal ECG Confirmed by WALDO SIMPSON, KEANU Kam ([id number]), telegraph editor EVELIA AVILES ([id number]) on 05/05/2018 3:25:54 PM Referred By: Confirmed By:KEANU HAAS MD
== END 2018-04-30 18:10 | disposition home or self-care (01) ==
LOC: ERS 07:53 → ERHOLD 11:21 → 2SW 14:40
PROVIDERS: ADMIT Internal Medicine; ATTEND Internal Medicine
PROC: 0DB78ZX Excision of Stomach, Pylorus, Via Natural or Artificial Opening Endoscopic, Diagnostic (ICD-10-PCS; principal; 2018-04-29)
PROC: 0FT44ZZ Resection of Gallbladder, Percutaneous Endoscopic Approach (ICD-10-PCS; 2018-04-30)
DX: K80.12 Calculus of gallbladder with acute and chronic cholecystitis without obstruction (principal); K29.50 Unspecified chronic gastritis without bleeding; K29.80 Duodenitis without bleeding; I80.209 Phlebitis and thrombophlebitis of unspecified deep vessels of unspecified lower extremity; F41.9 Anxiety disorder, unspecified; F31.9 Bipolar disorder, unspecified; J45.909 Unspecified asthma, uncomplicated; K21.9 Gastro-esophageal reflux disease without esophagitis; E66.9 Obesity, unspecified; Z68.32 Body mass index [BMI] 32.0-32.9, adult; Z86.010 Personal history of colon polyps; Z86.718 Personal history of other venous thrombosis and embolism; Z79.01 Long term (current) use of anticoagulants; Z79.899 Other long term (current) drug therapy; Z88.1 Allergy status to other antibiotic agents; Z88.2 Allergy status to sulfonamides; Z95.828 Presence of other vascular implants and grafts; Z98.890 Other specified postprocedural states
CPT/HCPCS: 36415; 71045; 71275; 76705; 80053; 80061; 81003; 82274; 82553; 83690; 83880; 84484; 85025; 85610; 85730; 88304; 88305; 88312; 93005; 93017; 94760; 96374; 96376; C9113; G0378; J1100; J1885; J2001; J2250; J2405; J2704; J3010; J3490

== ENCOUNTER 2018-05-08 08:56 | Inpatient (IN) | payer OTHER ==
[2018-05-08 09:27] LABS: pH, Urine 5.5 (5.0-9.0)
[2018-05-08 09:35] LABS: #Basophils 0.1 thou/uL (0.0-0.2); #Eosinphils 0.3 thou/uL (0.0-0.7); #Lymphocytes 1.2 thou/uL (1.20-3.40); #Monocytes 0.5 thou/uL (0.11-0.59); %Eosinophils 4.8 % (0.0-10.0); %Lymphocytes 19.6 % (21.0-51.0); %Monocytes 8.8 % (0.0-10.0); %Neutrophils 65.8 % (42.0-75.0); Hemoglobin 12.9 g/dL (12.0-16.0); Mean Corpuscular HGB CONC 32.1 g/dL (32.0-36.0); Mean Corpuscular Hemoglobin 30.3 pg (27.0-31.0); Mean Corpuscular Volume 94.6 fL (78.0-98.0); Mean Platelet Volume 8.2 fL (7.4-10.4); Platelet Count 244 thou/uL (130-400); RBC Distribution Width 12.1 % (11.5-14.5); Red Blood Cell (RBC) Count 4.26 mill/uL (4.20-5.40)
[2018-05-08 09:44] LABS: Clarity Clear (Clear); Leukocyte Negative (Negative)
[2018-05-08 09:45] LABS: Glucose, Urine (Dipstick) Negative (Negative); Nitrite Negative (Negative); Protein, Urine (Dipstick) Unable to Interpret mg/dL (Neg-Trace); Urobilinogen UNABLE TO INTERPRET mg/dL (0.2-1.0)
[2018-05-08 09:46] LABS: Bilirubin Unable to Interpret (Negative); Blood, Urine Negative (Negative)
[2018-05-08 09:52] LABS: RBC/HPF 0-3 HPF (0-3); Squamous Epithelial 0-3 HPF (0-3); WBC/HPF 0-3 HPF (0-3)
[2018-05-08 09:53] LABS: Yeast-All Forms None Seen HPF (None Seen)
[2018-05-08 09:55] LABS: ALT (SGPT) 384 U/L (8-55); AST (SGOT) 259 U/L (5-34); Alkaline Phosphatase 258 U/L (40-150); Anion Gap 13 mmol/L (10-20); BUN (Urea Nitrogen) 8 mg/dL (7.0-18.7); Bilirubin, Total 2.1 mg/dL (0.2-1.2); Calc. Creatinine Clearance 0 mL/min (70-130); Calcium 9.4 mg/dL (7.8-10.44); Carbon Dioxide 23 mmol/L (22-29); Chloride 106 mmol/L (98-107); Estimated GFR-MDRD 68; Globulin 3.7 g/dL (2.4-3.5); Glucose 128 mg/dL (70-105); Lipase 17 U/L (8-78); Potassium 3.8 mmol/L (3.5-5.1); Protein, Total 7.7 g/dL (6.0-8.3); Sodium 138 mmol/L (136-145)
[2018-05-08 09:56] LABS: Bacteria/HPF 1+ HPF (None Seen)
[2018-05-08 10:40] LABS: INR-International Normal Ratio 2.8; PTT 48.6 SEC (22.9-36.1); Prothrombin Time 29.4 SEC (12.0-14.7)
[2018-05-08] MEDS ORDERED: Dextrose 50% Abboject 50 ML SYRINGE SLOW IVP PRN (10:52)
[2018-05-08] MEDS ORDERED: HYDROcodone/Acetaminophen 10/325 mg Tablet PO PRN (10:52)
[2018-05-08] MEDS ORDERED: Ondansetron PF 4 MG/2 ML Vial IVP PRN (10:52)
[2018-05-08] MEDS ORDERED: Dextrose 5% in Water 1,000 ML IV PRN (10:52)
--- NOTE | 2018-05-08 10:58 | RAD ---
ACUTE ABDOMINAL SERIES INCLUDING 2-VIEW ABDOMEN AND SINGLE VIEW CHEST: INDICATION: Pain. COMPARISON: 04/28/2018. FINDINGS: There is bibasilar patchy density of the lung bases. No free air is seen. No significant effusion. The bowel gas pattern is nonobstructed with moderate retained fecal material throughout the colon. IMPRESSION: 1. Bibasilar patchy opacities which could relate to atelectasis versus pneumonitis. Correlate clini larry. 2. Nonobstructed bowel gas pattern with moderate retained fecal material of the colon. POS: [facility]
[2018-05-08] MEDS ORDERED: Glycerin Adult Supp. (12 ct jar) PR SCH (11:15)
--- NOTE | 2018-05-08 11:40 | HP ---
DATE OF ADMISSION: 05/08/[address] Renetta Howard in the Emergency Department. SURGERY ATTENDING: Chaitanya Burciaga D.O. REASON FOR CONSULTATION/ADMISSION: 1. Transaminitis. 2. Elevated bilirubin. 3. Abdominal pain. HISTORY OF PRESENT ILLNESS: Ms. Richardson is a 47-year-old female whom is status post laparoscopic cho lecystectomy for cholecystitis by Dr. Burciaga on 04/30/2018. The patient states that 3 days after surg itera, started having abdominal pain, that it has waxed and waned, but gotten progressively worse causi ng anorexia of the last 2 days. Pain was acutely worse this morning. Therefore, she presented to [facility] Emergency Department. The patient in the Emergency Department was noted to have AST, ALT elevation today as well as elevated bilirubin. She has no fevers. She has no leukocytosis. She reports naus ea without any vomiting and she is not having any diarrhea. The patient actually states that she has not had a bowel movement for the last 4 days. She is passing flatus. She has no other chief compla ints. The pain is mostly in the right upper quadrant. I have seen the patient in the Emergency Department and reviewed the old films. She has a KUB today, which shows surgical clips, otherwise is nontelling. Labs were reviewed. Again, the patient has no shortness of breath, no chest pain, no new edema. She states that she has been compliant with all o f her medications and is currently still taking Coumadin. REVIEW OF SYSTEMS: Pertinent positive and negative per HPI, otherwise is regarded as negative. PAST MEDICAL HISTORY: 1. Hypertension. 2. Hyperlipidemia. 3. Recurrent/chronic DVTs. 4. May-Thurner syndrome. PAST SURGICAL HISTORY: 1. Knee surgery in 1994. 2. Hysterectomy. 3. IVC filter placement. 4. Right hand surgery. 5. Left ankle surgery. 6. Left eye surgery. 7. Laparoscopic cholecystectomy, 04/30/2018. PAST PSYCHIATRIC HISTORY: Anxiety, depression and bipolar disorder. SOCIAL HISTORY: The patient currently lives here in [place]. She denies any tobacco or illicit drug u ses. She states that she socially drinks alcohol on occasion. 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 FAMILY HISTORY: Significant for, 1. DVT and pulmonary embolism. 2. Diabetes. 3. Hypertension. PHYSICAL EXAMINATION: VITAL SIGNS: Today, temperature is 98.3, blood pressure 108/74, heart rate is 79, breathing 16 times per minute, she is 97% on room air. GENERAL: This is a 47-year-old female, sitting up in bed, in no acute distress. HEENT: Normocephalic, atraumatic. Trachea is midline. Her mucous membranes are dry. RESPIRATORY: Equal rise and fall. Bilateral breath sounds are clear to auscultation upper and lower bilaterally. No rubs or wheezes are appreciated. CARDIOVASCULAR: Regular rate and rhythm. No murmurs. Strong pulses noted in 4 extremities and no e sung. ABDOMEN: Obese, soft, slightly tenderness to palpation in the epigastrium and right upper quadrant. She has no dorota peritoneal signs and no guarding or rigidity. PELVIS: Deferred. MUSCULOSKELETAL: Moves all extremities well. No deformity. SKIN: Normal for ethnicity. Warm and dry. PSYCHIATRIC: Normal mood and affect. DIAGNOSTIC DATA: From today, sodium is 138, potassium is 3.8, chloride is 106, CO2 is 23, BUN is 8, creatinine 1.04, glucose is 128. Total bilirubin is 2.1, AST and ALT 259 and 384 respectively, alkal ine phosphatase is 258, lipase is 17. Her urine today is orange with a high specific gravity. White blood cell count 6.0, platelets are 244,000, hemoglobin and hematocrit are 12.9 and 40.2 respectivel y. INR is 2.8, PT is 29.4 and aPTT is 48.6. An abdominal x-ray series shows possible atelectasis an d nonobstructive bowel gas pattern. Surgical clips are appreciated. ASSESSMENT: 1. Transaminitis and hyperbilirubinemia, concern for retained common bile duct stone. 2. Acute abdominal pain. 3. Constipation. 4. History of deep venous thrombosis, on chronic anticoagulation. PLAN: 1. Admit to the surgery alvarado. 2. We will consult GI and hope for ERCP shortly. 3. Fluid rehydration. 4. Pain control as needed. 5. N.p.o. except for meds at this time. 6. No signs of infectious etiology. We will hold antibiotics. 7. We will do daily labs until ERCP. 8. Bowel regimen has been ordered. We will start with an additional glycerin suppository today. 9. Continue home medications other than Coumadin, which we will hold for possible procedure. 10. Diet will be n.p.o. except for meds. 11. Activity, ad eden. 12. Full code. 13. Access or peripheral IVs. 14. Prophylaxis will be famotidine orally b.i.d. and SCDs. The patient is on Coumadin chronically f or which we are holding. DISPOSITION: Surgery alvarado. I have coordinated care with the Emergency Department physician and I have updated Ms. Richardson. This plan will be discussed with Dr. Burciaga and can be updated as needed.
[2018-05-08] MEDS: Ketorolac Tromethamine 30 MG/ML VIAL IVP SCH ×3 (13:07→23:34)
[2018-05-08] MEDS: Sodium Chloride 0.9% 1,000 ML IV SCH (13:07)
[2018-05-08 13:16] VITALS: BMI 32.3
[2018-05-08] MEDS ORDERED: Phytonadione 3 MG in Sodium Chloride 0.9% 50 ML IVPB SCH (15:43)
--- NOTE | 2018-05-08 16:03 | ULT ---
ULTRASOUND RIGHT UPPER QUADRANT ULTRASOUND ABDOMEN LIMITED: Clinical history: Examination was requested as an ascites study. Additionally, request for right uppe r quadrant ultrasound performed. These diagnostic exams are performed concurrently. Indication: Recent cholecystectomy. Clinical concern for bowel leak. Abdominal pain. FINDINGS: Limited abdominal ultrasound to evaluate for ascites is performed which reveals no evidence of ascite s within the imaged four abdominal quadrants. Separate right upper quadrant ultrasound exam is performed. This does confirm absence of a gallbladde r correlative to the patient's provided surgical history. Within the gallbladder fossa, there is an a bnormal heterogeneous collection, which is nonspecific with sonographic imaging. No significant intra hepatic biliary ductal dilatation is visualized. No focal hepatic lesion is visualized. IMPRESSION: Status post cholecystectomy. There is a heterogeneous collection at the gallbladder fossa. This is no nspecific and the possibility of a biliary leak is not excluded. If this of clinical concern, this sh ould be further assessed with a HIDA scan. POS: [facility]
[2018-05-08] MEDS: Famotidine 20 MG TAB PO SCH (20:41)
[2018-05-08] MEDS: Metoprolol Tartrate 25 MG TAB PO SCH (22:24)
[2018-05-09] MEDS: Sodium Chloride 0.9% 1,000 ML IV SCH (05:13)
[2018-05-09] MEDS: Ketorolac Tromethamine 30 MG/ML VIAL IVP SCH ×4 (05:15→23:09)
[2018-05-09 05:35] LABS: #Eosinphils 0.2 thou/uL (0.0-0.7); #Lymphocytes 1.5 thou/uL (1.20-3.40); #Monocytes 0.5 thou/uL (0.11-0.59); #Neutrophils 2.6 thou/uL (1.40-6.50); %Basophils 0.7 % (0.0-1.0); %Eosinophils 4.9 % (0.0-10.0); %Lymphocytes 31.1 % (21.0-51.0); %Monocytes 10.8 % (0.0-10.0); %Neutrophils 52.6 % (42.0-75.0); Hemoglobin 11.2 g/dL (12.0-16.0); Mean Corpuscular HGB CONC 31.8 g/dL (32.0-36.0); Mean Corpuscular Hemoglobin 30.4 pg (27.0-31.0); Mean Corpuscular Volume 95.6 fL (78.0-98.0); Mean Platelet Volume 8.4 fL (7.4-10.4); Platelet Count 222 thou/uL (130-400); RBC Distribution Width 12.1 % (11.5-14.5); White Blood Cell (WBC) Count 4.9 thou/uL (4.8-10.8)
[2018-05-09 05:48] LABS: INR-International Normal Ratio 1.3; PTT 37.3 SEC (22.9-36.1); Prothrombin Time 16.4 SEC (12.0-14.7)
[2018-05-09 05:48] LABS: ALT (SGPT) 248 U/L (8-55); AST (SGOT) 119 U/L (5-34); Albumin 3.2 g/dL (3.5-5.0); Alkaline Phosphatase 195 U/L (40-150); Anion Gap 10 mmol/L (10-20); BUN (Urea Nitrogen) 11 mg/dL (7.0-18.7); Bilirubin, Total 0.9 mg/dL (0.2-1.2); Calc. Creatinine Clearance 100 mL/min (70-130); Calcium 9.2 mg/dL (7.8-10.44); Carbon Dioxide 25 mmol/L (22-29); Chloride 108 mmol/L (98-107); Estimated GFR-MDRD 76; Globulin 3.4 g/dL (2.4-3.5); Glucose 95 mg/dL (70-105); Protein, Total 6.6 g/dL (6.0-8.3); Sodium 139 mmol/L (136-145)
[2018-05-09] MEDS: Metoprolol Tartrate 25 MG TAB PO SCH ×2 (08:10→20:15)
[2018-05-09] MEDS ORDERED: Iothalamate Meglumine 60% 50 ML VIAL FS ONE ×2 (09:09→10:52)
[2018-05-09] MEDS ORDERED: Levofloxacin 500 mg/D5W 100 ml Premix Bag ONE (09:30)
[2018-05-09] MEDS ORDERED: Indomethacin 50 MG SUPP ONE ×2 (09:31→09:33)
[2018-05-09] MEDS: Atorvastatin Calcium 10 MG TAB PO SCH (09:33)
[2018-05-09] MEDS: Famotidine 20 MG TAB PO SCH ×2 (09:33→20:16)
[2018-05-09] MEDS ORDERED: Fentanyl 100 MCG/2 ML VIAL ONE (09:36)
--- NOTE | 2018-05-09 09:42 | CON ---
DATE OF CONSULTATION: 05/08/2018 REASON FOR CONSULTATION: Abnormal LFTs, right-sided abdominal pain. HISTORY OF PRESENT ILLNESS: Ms. Richardson is a 47-year-old female, who was admitted to the hospital to day when she presented with right upper quadrant pain, right-sided pain and abnormal liver function t est. She had undergone a laparoscopic cholecystectomy on 04/30/2018. At that admission, she came in with several days of nausea and vomiting, and upper abdominal pain. She ultimately had an EGD, whic h was normal and then had an ultrasound of gallbladder which showed gallstones and she had her gallbl adder removed, pathology showed no gallstones, but some gallbladder inflammation. She said she did f ine for about 3 days, but then began having right-sided and right flank pain intermittently. It did not really should be related to eating or movement, although she took a deep breath, would be worse. There is no radiation of pain to the back. With worsening discomfort, she decided to come to the em ergency room. The pain being worse this morning she came into the hospital. Here, she was found to have elevated AST, ALT and bilirubin. She has had no fever or elevated white blood cell count. She has nausea, but no vomiting and is not having diarrhea. She has been a little bit constipated and th e last bowel was about 4 days ago. She had KUBs and ultrasound to the emergency room with no signifi cant abnormal findings per those reports. She is admitted now for further evaluation. Dr. Gualberto napier led me and was concerned about possibility of choledocholithiasis. REVIEW OF SYSTEMS: Negative for fever or chills. She does say her urine is dark. She denies any lo wer abdominal pain or chest pain or shortness of breath. She has been constipated. She denies any w eight loss. This pain that she has had is different than the symptoms she had previous to her cholec ystectomy. 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 PAST SURGICAL HISTORY: Knee surgery in 1984, hysterectomy, IVC filter placement, right hand surgery, left ankle surgery, left eye surgery, laparoscopic cholecystectomy on 04/30/2018 and EGD in 04/2018 as well as which was normal. SOCIAL HISTORY: The patient lives in [place]. She denies any tobacco or drug use. She drinks sociall y on occasion. 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 FAMILY HISTORY: DVT and pulmonary embolus in the past, diabetes, and hypertension. MEDICATIONS: Trazodone, warfarin, Protonix, metoprolol, atorvastatin. MEDICATIONS HERE: Lipitor, famotidine, hydrocodone, Toradol, lisinopril, normal saline at 75 mL an h our. Review of previous admission records, her gallbladder pathology showed chronic cholecystitis and chol elithiasis. Operative note from 04/30/2018 indicates no IOC was done, gallbladder had dense adhesion s. Gastric biopsies to evaluate for H. pylori last admission were negative except for mild chronic g astritis. PHYSICAL EXAMINATION: GENERAL: The patient is resting, alert and oriented, in the room. She is in no distress. HEENT: Oropharynx without lesions. NECK: Supple. LUNGS: Clear. HEART: Regular rate and rhythm without clicks, rubs or murmurs. ABDOMEN: Notable for some mild tenderness periumbilically in right upper quadrant flank and has even some left lower abdomen suprapubic tenderness. There is no rebound. There is no guarding. There i s no left flank tenderness. Bowel sounds are positive. There is no ecchymosis or bruising. EXTREMITIES: Reveal no clubbing, cyanosis or edema. LABORATORY STUDIES: White count 6, hemoglobin 12.9, platelet count is 244. INR was 2.8 today, it wa s 1.5 on 04/30/2018. Bilirubin was 2.1 and it was 0.3 on 04/30/2018, AST has gone from 17 to 259, AL T from 14 to 384, alkaline phosphatase from 72 to 258. Albumin is 4. Lipase is normal. IMAGING: KUB films reviewed. ASSESSMENT: 1. Presentation of right-sided abdominal pain. On exam, she has got some tenderness around the righ t upper quadrant, periumbilical region and left lower quadrant. Her urine has been negative. Her CB C is normal. The only thing that is different is she has elevated bilirubin, AST and ALT and alkalin e phosphatase now. Ultrasound showed no evidence of dilated bile duct or subhepatic fluid collection . A KUB showed air fluid level in the stomach, mild stool throughout the colon, but no overt dense c ollection of stool. Differential diagnosis would include choledocholithiasis, bile leak. Bile leak may be the more likely due to with her diffuse abdominal discomfort and the lack of corresponding sym ptoms to her previous biliary colic when she was here last time. The other concern would be for some ductal reaction to anesthetic, but she has had other surgeries, no prior untoward effects from the l iver. 2. Coagulation disorder. She has had clots in her lower extremities x2 and has IVC filter and has b een on anticoagulation at home. Her INR was 2.8 when admitted. She received some vitamin K today to correct that before proceeding with ERCP. PLAN: Discussed the patient the options of proceeding with ERCP tomorrow, or stenting if need ed be, other option would be getting a HIDA scan or a CAT scan, although I do not think the CAT scan will affect any real change in ultimate management. Agree with Dr. Burciaga, this is all likely related to her recent cholecystectomy and biliary tract disease. In looking back at the ultrasound report o f the gallbladder fossa, there is a heterogeneous collection that is nonspecific. This may represent some form of bile leaking, so we will go ahead and plan on placed her on some antibiotics this eveni ng and plan for ERCP tomorrow. We will check the INR, liver function tests and lipase again tomorrow morning.
[2018-05-09] MEDS ORDERED: Ondansetron HCl/PF 4 MG/2 ML Vial IVP PRN (11:28)
[2018-05-09] MEDS ORDERED: Promethazine HCl 25 MG/ML VIAL SLOW IVP PRN (11:28)
[2018-05-09] MEDS ORDERED: Promethazine HCl 25 MG/ML VIAL IM PRN (11:28)
--- NOTE | 2018-05-09 12:08 | OP ---
DATE OF PROCEDURE: 05/09/2018 SURGEON: Brian Young M.D. PREOPERATIVE DIAGNOSES: 1. Abnormal LFTs, after laparoscopic cholecystectomy actually improved from the to the . 2. Right upper quadrant pain after laparoscopic cholecystectomy, actually improved from the to the . Concern is for choledocholithiasis or bile leak. ANESTHESIA: General endotracheal anesthesia. PROCEDURES: ERCP with pancreatogram limited, cholangiogram could not be obtained as cannulation of t he bile duct was not successful. MEDICATIONS: The patient received Indocin suppositories, lactated Ringer's and Levaquin before the p rocedure. RECOMMENDATIONS: With unsuccessful ERCP would repeat liver function tests and lipase tomorrow, hydra te. Watch for any signs of posterior CP pancreatitis, obtain MRCP to rule out common bile duct stone s and a HIDA scan to rule out a bile leak. ANESTHESIA: TIVA. PROCEDURE IN DETAIL: After the patient was informed of the risks, benefits, possible complications o f endoscopy including perforation, bleeding, reactions to medication, aspiration and pancreatitis, in formed consent was obtained. The patient was brought to the endoscopy suite where she was intubated and placed in prone position. Once she was comfortable and in good position, a dental aide film was obtain ed showing clips in the right upper quadrant. Side-viewing duodenoscope was advanced through the eso phagus, stomach and second and third portion of duodenum and the ampulla was brought into view. The ampulla appeared somewhat patulous. There was clear bile emanating from it. There appeared to be po ssibly a little bit of debris on the ampulla. Multiple attempts to cannulate the ampulla with a sphi ncterotome were unsuccessful. Ultimately guidewire was used to try to probe and the pancreatic duct was entered with the wire. There was only injection of the pancreatic duct for a short distance. Th e wire was left in place and then the catheter was taken off the wire and placed back and the scope r edirected. Multiple attempts at cannulation were unsuccessful, attempt to cannulate with a taper tip ped catheter were unsuccessful. After 1 hour of attempts with no further contrast injections, the de cision was made to the discontinue the procedure. The scope was removed. The patient was extubated and brought to recovery room in stable condition.
--- NOTE | 2018-05-09 13:31 | RAD ---
[employer] COOK FILM: HISTORY: A 47-year-old female, status post laparoscopic cholecystectomy. Follow up epigastric pain. FINDINGS: A single portable fluoroscopic spot film is presented for interpretation. This includes the endoscop e, but there is no evidence for contrast injected into the common bile duct or pancreatic duct. IMPRESSION: No contract injected on this single spot image. POS: [facility]
[2018-05-09] MEDS ORDERED: Glycopyrrolate 0.2 MG/ML 5 ML SYRINGE ONE (14:34)
[2018-05-09] MEDS ORDERED: Ondansetron PF 4 MG/2 ML Vial ONE (14:34)
[2018-05-09] MEDS ORDERED: PROPOFOL 200 MG/20 ML VIAL ONE (14:34)
[2018-05-09] MEDS ORDERED: PHENYLEPHRINE-NS 100 MCG/ML 10 ML SYRINGE ONE (14:34)
[2018-05-09] MEDS ORDERED: Lidocaine 1% PF 5 ML VIAL ONE (14:34)
--- NOTE | 2018-05-09 15:02 | NM ---
HEPATOBILIARY SCAN: HISTORY: Recent cholecystectomy and concern for bile leak. Right upper quadrant pain. RADIOPHARMACEUTICAL: 5.5 mCi Technetium 99m-mebrofenin injected intravenously. FINDINGS: There is good tracer extraction by the liver with prompt excretion into the biliary tract and small b owel loops. There is tracer concentration in the gallbladder fossa. IMPRESSION: Findings are consistent with bile leak. Discussed over the telephone with Dr. Orlando Young at 2:30 p.m. CODE INGA POS: [facility]
[2018-05-09] MEDS: Dextrose 5 % And 0.9 % NaCl 1,000 ML IV SCH ×2 (15:14→20:16)
[2018-05-09] MEDS ORDERED: Polyethylene Glycol 3350 17 GM Packet PO PRN (16:13)
--- NOTE | 2018-05-09 16:48 | PRG-2 ---
DATE OF SERVICE: 05/09/2018 SUBJECTIVE: Ms. Richardson is a 47-year-old female who is status post laparoscopic cholecystectomy on 04/30/2018 and presented with abdominal pain and elevated LFTs with concern for possible retained common bile duct stone. GI has been consulted on this patient. Patient was stable this morning and ready for ERCP per GI recommendations. OBJECTIVE: VITAL SIGNS: Blood pressure 112/81, pulse 71, respirations 17, O2 sat 98% on room air, temperature 97.7 degrees. Pt was in ERCP during morning rounds and was not examined in AM. will f/u in afternoon. LABORATORY DATA: From today's hematology, white count is 4.9 down from yesterday 6.0, hemoglobin is 11.2, hematocrit is 35.3. From chemistry today, sodium is 139, potassium is 4.0, chloride is 108, carbon dioxide is 25, BUN is 11, creatinine is 0.95, glucose is 95. Total bilirubin is 0.9, down from yesterday's 2.1, AST is 119 down from yesterday's 259, ALT is 248, down from yesterday's 384. Alkaline phosphatase is 195 down from yesterday's 258. ASSESSMENT: 1. Transaminitis and hyperbilirubinemia, possibly secondary to retained common bile duct stone. 2. Acute abdominal pain. 3. History of deep venous thrombosis, on chronic anticoagulation. PLAN: 1. Follow up on GI recommendations and ERCP this morning. 2. Continue pain control as needed. 3. N.p.o. at this time. 4. All other supportive care. 5. Activity: Ad eden. 6. Continue prophylaxis with famotidine and SCDs. MTDD
--- NOTE | 2018-05-09 17:08 | PRG ---
DATE OF SERVICE: 05/09/2018 Ms. Richardson is doing well after attempted ERCP today. I was unsuccessful in cannulating the common b ile duct. She had a HIDA scan afterwards and that showed bile duct leak. This was suspected based o n ultrasound and her symptoms, we decided to go ahead and cancel the MRCP as she is going to need ano ther ERCP with attempted sphincterotomy and stent placement. I talked with her and her mom about the anatomy and the defects present, the etiology and the treatme nt. We offered him either transfer to [place] for attempt with Dr. Odonnell, a biliary endoscopist a t her ERCP or offered to see my partners on-call tomorrow attempt the ERCP and stent placement, and she preferred to go and stay here that done, so we will plan on that for tomorrow. We may let her eat and make her n.p.o. after midnight. We will start her empirically on some antibiotics.
[2018-05-10] MEDS: Ketorolac Tromethamine 30 MG/ML VIAL IVP SCH ×3 (05:33→18:12)
[2018-05-10 05:50] LABS: #Eosinphils 0.2 thou/uL (0.0-0.7); #Lymphocytes 1.4 thou/uL (1.20-3.40); #Monocytes 0.5 thou/uL (0.11-0.59); #Neutrophils 4.6 thou/uL (1.40-6.50); %Basophils 0.2 % (0.0-1.0); %Eosinophils 3.6 % (0.0-10.0); %Lymphocytes 20.9 % (21.0-51.0); %Monocytes 7.9 % (0.0-10.0); %Neutrophils 67.4 % (42.0-75.0); Hemoglobin 11.1 g/dL (12.0-16.0); Mean Corpuscular HGB CONC 31.8 g/dL (32.0-36.0); Mean Corpuscular Hemoglobin 30.5 pg (27.0-31.0); Mean Corpuscular Volume 95.7 fL (78.0-98.0); Mean Platelet Volume 8.5 fL (7.4-10.4); Platelet Count 235 thou/uL (130-400); Red Blood Cell (RBC) Count 3.65 mill/uL (4.20-5.40); White Blood Cell (WBC) Count 6.8 thou/uL (4.8-10.8)
[2018-05-10 06:05] LABS: ALT (SGPT) 200 U/L (8-55); AST (SGOT) 103 U/L (5-34); Albumin 3.2 g/dL (3.5-5.0); Alkaline Phosphatase 173 U/L (40-150); Anion Gap 10 mmol/L (10-20); BUN (Urea Nitrogen) 13 mg/dL (7.0-18.7); Bilirubin, Total 0.6 mg/dL (0.2-1.2); Calc. Creatinine Clearance 96 mL/min (70-130); Calcium 8.8 mg/dL (7.8-10.44); Carbon Dioxide 24 mmol/L (22-29); Chloride 107 mmol/L (98-107); Estimated GFR-MDRD 73; Globulin 3.3 g/dL (2.4-3.5); Glucose 98 mg/dL (70-105); Protein, Total 6.5 g/dL (6.0-8.3); Sodium 137 mmol/L (136-145)
[2018-05-10 06:18] LABS: Lipase 1318 U/L (8-78)
[2018-05-10] MEDS: Metoprolol Tartrate 25 MG TAB PO SCH (08:28)
[2018-05-10] MEDS: Dextrose 5 % And 0.9 % NaCl 1,000 ML IV SCH ×2 (08:30→16:38)
[2018-05-10] MEDS: Famotidine 20 MG TAB PO SCH (08:31)
[2018-05-10] MEDS: Atorvastatin Calcium 10 MG TAB PO SCH (08:31)
[2018-05-10] MEDS ORDERED: Fentanyl 100 MCG/2 ML VIAL ONE (10:19)
[2018-05-10] MEDS ORDERED: Iothalamate Meglumine 60% 50 ML VIAL FS ONE (10:26)
[2018-05-10] MEDS ORDERED: Indomethacin 50 MG SUPP ONE ×2 (10:26)
[2018-05-10] MEDS ORDERED: Levofloxacin 500 mg/D5W 100 ml Premix Bag ONE (10:27)
[2018-05-10] MEDS ORDERED: Indomethacin 50 MG SUPP PR SCH (10:30)
[2018-05-10] MEDS ORDERED: Phenylephrine HCL 10 MG/ML VIAL ONE (10:42)
[2018-05-10] MEDS ORDERED: HYDROmorphone 2 MG/ML VIAL SLOW IVP PRN (11:24)
[2018-05-10] MEDS ORDERED: Meperidine HCl/PF 25 MG/ML VIAL SLOW IVP PRN (11:24)
[2018-05-10] MEDS ORDERED: Promethazine HCl 25 MG/ML VIAL IM PRN (11:24)
[2018-05-10] MEDS ORDERED: Promethazine HCl 25 MG/ML VIAL SLOW IVP PRN (11:24)
--- NOTE | 2018-05-10 12:34 | OP ---
DATE OF PROCEDURE: 05/10/2018 PROCEDURE: Endoscopic retrograde cholangiopancreatography. INDICATION FOR PROCEDURE: Biliary leak seen on GI imaging. DESCRIPTION OF PROCEDURE: After the risks and benefits of the procedure were explained to the patien t including risk of bleeding, infection, perforation, reactions to anesthesia, aspiration and pancrea titis and/or pain, informed consent was obtained. The patient was then taken to the endoscopy suite where general anesthesia was administered. General anesthesia was induced with endotracheal intubati on via anesthesia support. Once the patient was successfully intubated, she was placed in the supine position in preparation for an ERCP. Once adequately in position, the standard duodenoscope was int roduced into the mouth with the intubation of the esophagus, stomach and the proximal small intestine with the findings listed below. The ampulla could not be cannulated during this procedure and so af ter multiple attempts, the procedure was ultimately aborted with all equipment removed at that time. The patient tolerated the procedure well with no immediate perioperative complications. After the p rocedure, she was transferred to PACU in satisfactory condition. EGD FINDINGS: Limited views of the mucosa seen during the EGD portion of the exam, normal appearing mucosa was seen in the esophagus, stomach and the proximal small intestine. ERCP FINDINGS: The duodenoscope was maneuvered into adequate position within the second portion of t he duodenum with adequate views of the ampulla seen. The ampulla was bulbous in form with increased mucosal erythema around the ampullary orifice. Solomon bile was seen emanating from the ampulla itsel f with no expression of purulence. Using a 5-mm sphincterotome, multiple attempts were made to cannu late the ampulla and were ultimately unsuccessful. Given the multiple repeated attempts yesterday at cannulation of the common bile duct, the procedure was aborted prematurely with all curb removed. IMPRESSION: Unsuccessful ERCP with inability to cannulate the ampulla of Vater and no visualization of the common bile duct and/or biliary leak. RECOMMENDATIONS: 1. We would monitor the patient for signs of post-ERCP pancreatitis. 2. We would transfer the patient to [place] for evaluation by Dr. Alejo Hardy in attempt to succes sfully cannulate the common bile duct with stent placement for biliary leak.
[2018-05-10] MEDS ORDERED: PHENYLEPHRINE-NS 100 MCG/ML 10 ML SYRINGE ONE (13:46)
[2018-05-10] MEDS ORDERED: PROPOFOL 200 MG/20 ML VIAL ONE (13:46)
[2018-05-10] MEDS ORDERED: Ondansetron PF 4 MG/2 ML Vial ONE (13:46)
[2018-05-10] MEDS ORDERED: Dexamethasone 20 MG/5 ML VIAL ONE (13:46)
[2018-05-10] MEDS ORDERED: Glycopyrrolate 0.2 MG/ML 5 ML SYRINGE ONE (13:46)
[2018-05-10] MEDS ORDERED: Lidocaine 1% PF 5 ML VIAL ONE (13:46)
[2018-05-10 13:52] VITALS: BP 138/85; TEMP 98.6
[2018-05-10] MEDS ORDERED: Sodium Chloride 0.9% 1,000 ML IV SCH (16:30)
--- NOTE | 2018-05-10 18:44 | PRG ---
DATE OF SERVICE: 05/10/2018 SUBJECTIVE: Ms. Richardson is a 47-year-old woman, patient is postoperative #10, status post laparoscopic cholecystectomy. She was readmitted with abdominal pain. Clinical and radiographic examination was consistent with an acute bile leak. The gallbladder fossa is likely from the cystic ductal stump leak. Patient has had 2 failed attempts at ERCP. She is awake and alert, reporting residual abdominal pain, which is controlled on oral analgesics. PHYSICAL EXAMINATION: VITAL SIGNS: Currently includes blood pressure 138/85, pulse is 69, respiratory rate 18, temperature is 98.6 degrees Fahrenheit, oxygen saturation 95% on room air. HEART: Reveals regular rate and rhythm, no murmurs or gallops auscultated. CHEST: Clear to auscultation bilaterally. Breathing regular and unlabored. ABDOMEN: Soft and moderately distended. She has moderate tenderness to palpation with no significant rebound tenderness present. Bowel sounds in all four quadrants appear normoactive. LABORATORY FINDINGS: Today includes a CBC with 6800 white blood cells, hemoglobin and hematocrit 11.1 and 34.9 respectively. Platelet count is 235, 000. Metabolic profile: Sodium 137, potassium is 4.0, chloride is 107, bicarbonate 24, BUN 13, creatinine 0.98, glucose is 98. Total bilirubin 0.6, AST and ALT are noted at 103 and 200 respectively. Alkaline phosphatase is also elevated at 173. Total bilirubin, however, is normal at 0.6. Serum lipase today is 1318. IMPRESSION: 1. Postop day #10, status post laparoscopic cholecystectomy. 2. Postoperative bile leak. 3. Post-ERCP acute pancreatitis. PLAN: 1. Bowel rest, IV hydration. 2. We will start patient on empiric antibiotics, given the presence of likely bile peritonitis. Arrangement has been made to transfer patient to [place] for interventional cardiology and eventual ERCP and biliary stent placement. The patient will follow up with me in the Surgery Clinic on 05/16/2018. She indicates understanding of information provided. Answer the questions. FOZIA
--- NOTE | 2018-05-10 19:24 | PRG ---
DATE OF SERVICE: 05/10/2018 SUBJECTIVE: Ms. Richardson had a followup attempted ERCP with Dr. Martel, my partner today. He was not able to cannulate her common duct either. She is without complaints today. She has had no fever and has been stable. She did have elevation of her lipase today at this morning before the ERCP, lipase was 17 on 01/05/2018. This likely represents mild post-ERCP pancreatitis and a previous proce dure yesterday. PHYSICAL EXAMINATION: VITAL SIGNS: Temperature is 98.6, pulse 59, blood pressure 138/95. LUNGS: Clear. HEART: Regular rate and rhythm without clicks or murmurs. ABDOMEN: Nontender. LABORATORY STUDIES: Sodium 137, potassium 4, BUN is 13, creatinine is 0.9, glucose is 98. Calcium i s 8.8, AST and ALT are 103 and 200 down from 259 and 384, alkaline phosphatase is 173 down from 258. Bilirubin is 0.6, down from 2.1. ASSESSMENT: 1. Bile leak post-cholecystectomy on 04/30/2018. Bile leak is confirmed by HIDA scan yesterday. 2. Mildly elevated liver enzymes likely related to bile leak, but could represent a common duct ston e as she did not have an IOC at the time of her laparoscopic cholecystectomy secondary to severe chol ecystitis. She did have normal LFTs and bilirubin at that time. 2. History of May-Thurner syndrome with previous DVT x2 related to this. She has been on lifelong a nticoagulation, this is on hold presently. 3. Mild post-ERCP pancreatitis on IV fluids. She received a liter bolus and given 100 mL an hour. RECOMMENDATIONS: 1. Keep n.p.o. 2. Continue supportive IV fluids. 3. Monitor lipase. The patient is going to be transferred to [facility] in [place] high level of care for attem pted ERCP by therapeutic ERCP specialist as it had been unsuccessful here twice to access the bile du ct for catheter placement for the bile leak. These issues discussed with the patient. I have also _ ____ the accepting physician in [place] via the transfer center. If she does stay, there is not a bed available. We will reevaluate her in the morning.
[2018-05-10] MEDS ORDERED: MEROPENEM 1 GM/50 ML 1 GM in Premix Bag 1 BAG IVPB SCH (22:00)
== END 2018-05-10 18:37 | disposition short-term general hospital (02) | DRG 393 ==
LOC: ERS 08:56 → SURG A 10:23
PROVIDERS: ADMIT Surgery; ATTEND Surgery
PROC: 0FJD8ZZ Inspection of Pancreatic Duct, Via Natural or Artificial Opening Endoscopic (ICD-10-PCS; 2018-05-09)
PROC: 0FJB8ZZ Inspection of Hepatobiliary Duct, Via Natural or Artificial Opening Endoscopic (ICD-10-PCS; principal; 2018-05-10)
DX: K91.89 Other postprocedural complications and disorders of digestive system (principal); K85.90 Acute pancreatitis without necrosis or infection, unspecified; Z90.49 Acquired absence of other specified parts of digestive tract; I10 Essential (primary) hypertension; E78.5 Hyperlipidemia, unspecified; Z86.718 Personal history of other venous thrombosis and embolism; F41.9 Anxiety disorder, unspecified; F32.9 Major depressive disorder, single episode, unspecified; F31.9 Bipolar disorder, unspecified; Z79.01 Long term (current) use of anticoagulants; E80.6 Other disorders of bilirubin metabolism; K59.00 Constipation, unspecified
CPT/HCPCS: 36415; 74022; 74330; 76705; 78226; 80053; 81003; 83690; 85025; 85610; 85730; 86850; 86900; 86901; A9537; C1769; J1100; J1610; J1885; J1956; J2001; J2185; J2370; J2405; J2704; J3010; J3430; J7042; J7050; Q9961

== ENCOUNTER 2018-06-16 09:56 | Day surgery (SDC) | payer OTHER ==
[2018-06-15 08:24] VITALS: BMI 32.8
[2018-06-16] MEDS ORDERED: PROPOFOL 200 MG/20 ML VIAL ONE (20:13)
--- NOTE | 2018-06-16 20:32 | OP ---
DATE OF PROCEDURE: 06/16/2018 PROCEDURE PERFORMED: Esophagogastroduodenoscopy with biliary stent extraction. INDICATION FOR PROCEDURE: Recent history of biliary leak and choledocholithiasis with placement of biliary stent at that time. DESCRIPTION OF PROCEDURE: After the risks and benefits of the procedure were explained to the patient including risks of bleeding, infection, perforation, reactions to anesthesia, aspiration and/or pain, informed consent was obtained. The patient was then taken to the endoscopy suite, where deep sedation was administered via propofol and anesthesia support. Once adequate sedation was achieved and the patient was placed in the left lateral decubitus position, the standard duodenoscope was introduced into the mouth with intubation of the esophagus, stomach, and proximal small intestine with the findings listed below. The patient tolerated the procedure well with no immediate perioperative complications. At the completion of the procedure, all equipment was removed from the patient and the patient was taken to Day Stay in satisfactory condition. EGD FINDINGS: Esophagus: Limited views were obtained of the esophagus given the side-viewing nature of the duodenoscope. Of the mucosa visualized, there was no evidence of erosions, ulcerations, mass, or lesions. Stomach: Limited views were obtained from the stomach, which did not show any evidence of erosions, ulcerations, mass, lesions, or active/recent bleeding. Duodenum: Upon entry into the proximal small intestine, a biliary stent was noted protruding from the ampulla of Vater. The stent did exhibit drainage of casanova-brown bile from its distal end. There was no evidence of erosions, ulcerations, bleeding, or mucosal breakdown at the site of the stent placement. Using a snare, the biliary stent was then snared and pulled out with the scope through the mouth without difficulty. The duodenoscope was then advanced back to the proximal small intestine with visualization of the ampulla, again with normal appearance and draining a minimal amount of bile at the completion of the procedure. IMPRESSION: Successful extraction of a biliary stent from the ampulla of Vater via side-viewing scope. RECOMMENDATIONS: 1. We will have the patient follow up in the GI clinic in 3 weeks for re-evaluation of her abdominal pain. 2. If the patient has recurrence of her abdominal pain, we would recommend imaging of the biliary tree to ensure adequate drainage and/or possibility of retained stone within the biliary system. Job ID: [id number]
== END 2018-06-16 15:23 | disposition home or self-care (01) ==
LOC: SDC 09:56
PROVIDERS: ATTEND Internal Medicine
PROC: 0FPB8DZ Removal of Intraluminal Device from Hepatobiliary Duct, Via Natural or Artificial Opening Endoscopic (ICD-10-PCS; principal; 2018-06-16)
DX: Z46.59 Encounter for fitting and adjustment of other gastrointestinal appliance and device (principal); K21.9 Gastro-esophageal reflux disease without esophagitis; J45.909 Unspecified asthma, uncomplicated; Z88.5 Allergy status to narcotic agent; Z88.1 Allergy status to other antibiotic agents; Z88.2 Allergy status to sulfonamides; Z79.899 Other long term (current) drug therapy
CPT/HCPCS: J2704

== ENCOUNTER 2018-09-04 18:39 | Emergency (ER) | payer OTHER, SELFPAY ==
--- NOTE | 2018-09-04 20:12 | RAD ---
LEFT KNEE FOUR VIEWS: History: Knee pain. Comparison: 2016 FINDINGS: No significant knee joint effusion. Mild medial compartment joint space narrowing with small medial c ompartment osteophyte formation. Soft tissues are unremarkable. Small patellofemoral compartment osteophytes. IMPRESSION: No acute displaced fracture or malalignment. POS: [facility]
== END 2018-09-04 21:25 | disposition home or self-care (01) ==
LOC: ERS 18:39
DX: M25.562 Pain in left knee (principal); I10 Essential (primary) hypertension; J45.909 Unspecified asthma, uncomplicated; F41.9 Anxiety disorder, unspecified; F31.9 Bipolar disorder, unspecified; Z79.899 Other long term (current) drug therapy; Z79.01 Long term (current) use of anticoagulants; Z86.718 Personal history of other venous thrombosis and embolism

== ENCOUNTER 2018-09-14 14:56 | Emergency (ER) | payer SELFPAY ==
[2018-09-14] MEDS ORDERED: diphenhydrAMINE 50 MG/ML VIAL ONE (15:41)
[2018-09-14] MEDS ORDERED: Metoclopramide HCl 10 MG/2 ML VIAL ONE (15:41)
[2018-09-14 15:48] LABS: #Lymphocytes 1.8 thou/uL (1.20-3.40); #Monocytes 0.6 thou/uL (0.11-0.59); #Neutrophils 4.2 thou/uL (1.40-6.50); %Basophils 0.6 % (0.0-1.0); %Eosinophils 0.7 % (0.0-10.0); %Lymphocytes 27.5 % (21.0-51.0); %Monocytes 8.3 % (0.0-10.0); %Neutrophils 62.9 % (42.0-75.0); Hemoglobin 13.9 g/dL (12.0-16.0); Mean Corpuscular HGB CONC 32.5 g/dL (32.0-36.0); Mean Corpuscular Hemoglobin 30.6 pg (27.0-31.0); Mean Platelet Volume 8.6 fL (7.4-10.4); Platelet Count 250 thou/uL (130-400); RBC Distribution Width 12.3 % (11.5-14.5); Red Blood Cell (RBC) Count 4.55 mill/uL (4.20-5.40); White Blood Cell (WBC) Count 6.6 thou/uL (4.8-10.8)
[2018-09-14 15:51] LABS: Bilirubin Negative (Negative); Blood, Urine Negative (Negative); Clarity CLEAR (Clear); Glucose, Urine (Dipstick) Negative (Negative); Leukocyte Negative (Negative); Nitrite Negative (Negative); Protein, Urine (Dipstick) Negative (Neg-Trace); Specific Gravity, Urine 1.018 (1.002-1.036); pH, Urine 6.5 (5.0-9.0)
[2018-09-14 15:55] LABS: INR-International Normal Ratio 2.1; PTT 44.9 SEC (22.9-36.1); Prothrombin Time 23.8 SEC (12.0-14.7)
[2018-09-14 16:08] LABS: ALT (SGPT) 14 U/L (8-55); AST (SGOT) 16 U/L (5-34); Albumin 4.2 g/dL (3.5-5.0); Alkaline Phosphatase 97 U/L (40-150); Anion Gap 12 mmol/L (10-20); BUN (Urea Nitrogen) 16 mg/dL (7.0-18.7); Bilirubin, Total 0.3 mg/dL (0.2-1.2); Calc. Creatinine Clearance 0 mL/min (70-130); Calcium 9.6 mg/dL (7.8-10.44); Carbon Dioxide 29 mmol/L (22-29); Chloride 102 mmol/L (98-107); Estimated GFR-MDRD 64; Glucose 97 mg/dL (70-105); Potassium 4.1 mmol/L (3.5-5.1); Protein, Total 8.2 g/dL (6.0-8.3); Sodium 139 mmol/L (136-145)
--- NOTE | 2018-09-14 16:20 | CT ---
HISTORY: Headache. Left sided facial numbness and tingling of the tongue. This episode is appears different fr om her migraines. FINDINGS: Comparison is made with exam of 11/20/16. No evidence of acute infarct, hemorrhage, midline shift or abnormal extra-axial fluid collections are seen. Ventricular size is stable and the basilar cisterns patent. There is an old lacunar infarct in the left posterior basal ganglia. The bony calvarium is intact. T he visualized paranasal sinuses and mastoid air cells are well aerated. IMPRESSION: No CT evidence of acute intracranial process. POS: [facility]
== END 2018-09-14 17:17 | disposition home or self-care (01) ==
LOC: ERS 14:56
DX: R51 Headache (principal); I10 Essential (primary) hypertension; J45.909 Unspecified asthma, uncomplicated; F41.9 Anxiety disorder, unspecified; F31.9 Bipolar disorder, unspecified; Z86.73 Personal history of transient ischemic attack (TIA), and cerebral infarction without residual deficits
CPT/HCPCS: 70450; 80053; 81003; 85025; 85610; 85730; 94760; 96365; 96375; J1200; J2765

== ENCOUNTER 2018-11-26 18:47 | Emergency (ER) | payer SELFPAY ==
[2018-11-26] MEDS ORDERED: Ondansetron PF 4 MG/2 ML Vial ONE (19:36)
[2018-11-26 19:38] LABS: #Eosinphils 0.1 thou/uL (0.0-0.7); #Lymphocytes 1.8 thou/uL (1.20-3.40); #Monocytes 0.5 thou/uL (0.11-0.59); #Neutrophils 2.3 thou/uL (1.40-6.50); %Basophils 0.9 % (0.0-1.0); %Eosinophils 1.3 % (0.0-10.0); %Lymphocytes 38.1 % (21.0-51.0); %Monocytes 10.2 % (0.0-10.0); %Neutrophils 49.4 % (42.0-75.0); Hemoglobin 12.2 g/dL (12.0-16.0); Mean Corpuscular HGB CONC 32.3 g/dL (32.0-36.0); Mean Corpuscular Hemoglobin 30.5 pg (27.0-31.0); Mean Corpuscular Volume 94.2 fL (78.0-98.0); Mean Platelet Volume 8.4 fL (7.4-10.4); Platelet Count 205 thou/uL (130-400); RBC Distribution Width 11.7 % (11.5-14.5); White Blood Cell (WBC) Count 4.7 thou/uL (4.8-10.8)
[2018-11-26 20:01] LABS: ALT (SGPT) 15 U/L (8-55); AST (SGOT) 18 U/L (5-34); Albumin 3.9 g/dL (3.5-5.0); Alkaline Phosphatase 78 U/L (40-150); Anion Gap 13 mmol/L (10-20); BUN (Urea Nitrogen) 11 mg/dL (7.0-18.7); Bilirubin, Total 0.2 mg/dL (0.2-1.2); Calc. Creatinine Clearance 0 mL/min (70-130); Calcium 9.1 mg/dL (7.8-10.44); Carbon Dioxide 25 mmol/L (22-29); Chloride 106 mmol/L (98-107); Estimated GFR-MDRD 50; Globulin 3.4 g/dL (2.4-3.5); Glucose 95 mg/dL (70-105); Lipase 22 U/L (8-78); Potassium 4.4 mmol/L (3.5-5.1); Protein, Total 7.3 g/dL (6.0-8.3); Sodium 140 mmol/L (136-145)
[2018-11-26 20:01] LABS: Bilirubin Negative (Negative); Blood, Urine Negative (Negative); Clarity CLEAR (Clear); Glucose, Urine (Dipstick) Negative (Negative); Leukocyte Negative (Negative); Nitrite Negative (Negative); Protein, Urine (Dipstick) Negative (Neg-Trace)
[2018-11-26] MEDS ORDERED: Morphine 4 MG/ML VIAL ONE (20:40)
--- NOTE | 2018-11-26 20:51 | CT ---
CT ABDOMEN WITH CONTRAST CT PELVIS WITH CONTRAST: DATE: 11/26/2018 HISTORY: 48-year-old female with both right upper quadrant and left upper quadrant abdominal pain with nausea. Urinary frequency. COMPARISON: 12/05/2017 TECHNIQUE: IV injection of iodinated contrast media: Administered Oral contrast media:Not administered FINDINGS: Liver: No focal solid mass. Spleen: No splenomegaly.. Pancreas: No mass or surrounding fat stranding.. Adrenals: No mass.. Kidneys: No hydronephrosis or enhancement abnormalities.. Ureters: No dilation. Bladder: Empty. Abdominal aorta: No aneurysm. Small bowel: No dilation. Colon: No adjacent fat stranding. Appendix: No dilation or adjacent fat stranding.. Free air: None. Free fluid: None. Surgical clips posterior to the right common iliac artery. Mildly dilated left common iliac vein. No interval change overall. IMPRESSION: 1. No major pathology identified.. 2. Evidence of previous surgery for May-Thurner syndrome
[2018-11-26 21:01] LABS: INR-International Normal Ratio 2.6; PTT 44.3 SEC (22.9-36.1); Prothrombin Time 28.1 SEC (12.0-14.7)
== END 2018-11-26 21:40 | disposition home or self-care (01) ==
LOC: ERS 18:47
DX: R10.11 Right upper quadrant pain (principal); R10.12 Left upper quadrant pain; J45.909 Unspecified asthma, uncomplicated; I10 Essential (primary) hypertension; F41.9 Anxiety disorder, unspecified; F31.9 Bipolar disorder, unspecified; Z79.01 Long term (current) use of anticoagulants; Z86.718 Personal history of other venous thrombosis and embolism; Z86.73 Personal history of transient ischemic attack (TIA), and cerebral infarction without residual deficits; Z79.899 Other long term (current) drug therapy
CPT/HCPCS: 36415; 74177; 80053; 81003; 83690; 85025; 85610; 85730; 93005; 96361; 96374; 96375; J2270; J2405; Q9966

== ENCOUNTER 2018-12-16 08:55 | Emergency (ER) | payer BC, SELFPAY ==
[2018-12-16 09:28] LABS: #Eosinphils 0.1 thou/uL (0.0-0.7); #Lymphocytes 1.4 thou/uL (1.20-3.40); #Monocytes 0.3 thou/uL (0.11-0.59); #Neutrophils 2.5 thou/uL (1.40-6.50); %Basophils 0.4 % (0.0-1.0); %Eosinophils 1.4 % (0.0-10.0); %Lymphocytes 32.5 % (21.0-51.0); %Monocytes 7.5 % (0.0-10.0); %Neutrophils 58.2 % (42.0-75.0); Hemoglobin 12.8 g/dL (12.0-16.0); Mean Corpuscular HGB CONC 32.8 g/dL (32.0-36.0); Mean Corpuscular Hemoglobin 30.8 pg (27.0-31.0); Mean Corpuscular Volume 93.8 fL (78.0-98.0); Mean Platelet Volume 8.6 fL (7.4-10.4); Platelet Count 212 thou/uL (130-400); RBC Distribution Width 11.6 % (11.5-14.5); Red Blood Cell (RBC) Count 4.17 mill/uL (4.20-5.40); White Blood Cell (WBC) Count 4.3 thou/uL (4.8-10.8)
[2018-12-16 09:36] LABS: Bilirubin Negative (Negative); Blood, Urine Negative (Negative); Clarity CLEAR (Clear); Glucose, Urine (Dipstick) Negative (Negative); Leukocyte Negative (Negative); Nitrite Negative (Negative); Protein, Urine (Dipstick) Negative (Neg-Trace); Urobilinogen 0.2 mg/dL (0.2-1.0)
[2018-12-16 09:48] LABS: ALT (SGPT) 11 U/L (8-55); AST (SGOT) 15 U/L (5-34); Albumin 3.9 g/dL (3.5-5.0); Alkaline Phosphatase 84 U/L (40-150); Anion Gap 13 mmol/L (10-20); BUN (Urea Nitrogen) 13 mg/dL (7.0-18.7); Bilirubin, Total 0.2 mg/dL (0.2-1.2); Calc. Creatinine Clearance 0 mL/min (70-130); Calcium 9.2 mg/dL (7.8-10.44); Carbon Dioxide 26 mmol/L (22-29); Chloride 105 mmol/L (98-107); Estimated GFR-MDRD 60; Globulin 3.7 g/dL (2.4-3.5); Glucose 96 mg/dL (70-105); Potassium 4.2 mmol/L (3.5-5.1); Protein, Total 7.6 g/dL (6.0-8.3); Sodium 140 mmol/L (136-145)
--- NOTE | 2018-12-16 10:55 | CT ---
Exam: Abdomen CT without contrast Pelvic CT without contrast HISTORY: Left flank pain COMPARISON: 02/05/2015, 11/26/2018 FINDINGS: Abdomen CT: Lung bases:Clear Heart size: Normal size Aorta: Normal caliber Solid organs: Grossly unremarkable. Limited evaluation due to the absence of IV contrast administrati on Lymph nodes: No gastrohepatic, retrocrural or periportal lymphadenopathy Gallbladder: Surgically absent Mesentery: No mass, lymphadenopathy, free air or free fluid Kidneys: Bilaterally, no hydronephrosis, nephrolithiasis or perinephric fat stranding. Bilateral uret ers have a normal caliber. No hydroureter, periureteral fat stranding or ureterolithiasis. Alimentary canal: Limited evaluation due to technique. No evidence of bowel obstruction. Normal calib er appendix. Diverticulosis, without evidence of diverticulitis CT PELVIS: No mass, adenopathy, free air or free fluid. Urinary bladder: Unremarkable. Osseous structures: No lytic or blastic lesions IMPRESSION: 1. Bilaterally no obstructive uropathy. 2. Normal caliber appendix.
[2018-12-16 11:00] LABS: INR-International Normal Ratio 3.1; PTT 53.9 SEC (22.9-36.1); Prothrombin Time 31.3 SEC (12.0-14.7)
== END 2018-12-16 11:40 | disposition home or self-care (01) ==
LOC: ERS 08:55
DX: R10.9 Unspecified abdominal pain (principal); F41.9 Anxiety disorder, unspecified; F31.9 Bipolar disorder, unspecified; J45.909 Unspecified asthma, uncomplicated; I10 Essential (primary) hypertension; Z86.73 Personal history of transient ischemic attack (TIA), and cerebral infarction without residual deficits; Z86.718 Personal history of other venous thrombosis and embolism
CPT/HCPCS: 36415; 74176; 80053; 81003; 85025; 85610; 85730

== ENCOUNTER 2019-04-15 14:43 | Emergency (ER) | payer BC ==
[2019-04-15] MEDS ORDERED: Ketorolac Tromethamine 30 MG/ML VIAL ONE (15:15)
[2019-04-15 15:59] LABS: INR-International Normal Ratio 1.6; Prothrombin Time 19.1 SEC (12.0-14.7)
[2019-04-15 16:16] LABS: ALT (SGPT) 11 U/L (8-55); AST (SGOT) 15 U/L (5-34); Albumin 4.1 g/dL (3.5-5.0); Alkaline Phosphatase 80 U/L (40-110); Anion Gap 13 mmol/L (10-20); BUN (Urea Nitrogen) 13 mg/dL (7.0-18.7); Bilirubin, Total 0.2 mg/dL (0.2-1.2); Calc. Creatinine Clearance 0 mL/min (70-130); Calcium 9.5 mg/dL (7.8-10.44); Carbon Dioxide 26 mmol/L (22-29); Chloride 104 mmol/L (98-107); Estimated GFR-MDRD 66; Globulin 3.9 g/dL (2.4-3.5); Glucose 130 mg/dL (70-105); Potassium 3.7 mmol/L (3.5-5.1); Sodium 139 mmol/L (136-145)
--- NOTE | 2019-04-15 16:22 | ULT ---
VENOUS DOPPLER ULTRASOUND LEFT LOWER EXTREMITY: History: Left lower extremity pain. Technique: Grayscale, color flow, and spectral doppler imaging of the deep venous system of the left lower extremity was performed. FINDINGS: There is good flow, compression, and augmentation noted in the left common femoral, femoral, deep fem oral, popliteal, and posterior tibial vein. IMPRESSION: No evidence of DVT in the left lower extremity. POS: LÓPEZ
== END 2019-04-15 16:35 | disposition home or self-care (01) ==
LOC: ERS 14:43
DX: M25.512 Pain in left shoulder (principal); M79.89 Other specified soft tissue disorders; I10 Essential (primary) hypertension; J45.909 Unspecified asthma, uncomplicated; F31.9 Bipolar disorder, unspecified; F41.9 Anxiety disorder, unspecified; Z79.899 Other long term (current) drug therapy; Z86.73 Personal history of transient ischemic attack (TIA), and cerebral infarction without residual deficits; Z79.01 Long term (current) use of anticoagulants; Z86.718 Personal history of other venous thrombosis and embolism
CPT/HCPCS: 36415; 80053; 83880; 84484; 85610; 93005; 96374; J1885

== ENCOUNTER 2019-04-29 11:22 | Emergency (ER) | payer BC ==
--- NOTE | 2019-04-29 12:18 | RAD ---
RADIOGRAPH CHEST 2 VIEWS: DATE: 04/29/2019 HISTORY: 48-year-old female with productive cough and fever. FINDINGS: There is no airspace density, pulmonary edema, pleural effusion, pneumothorax, or cardiomegaly. IMPRESSION: No acute cardiopulmonary findings.
== END 2019-04-29 13:10 | disposition home or self-care (01) ==
LOC: ERS 11:22
DX: J06.9 Acute upper respiratory infection, unspecified (principal); M94.0 Chondrocostal junction syndrome [Tietze]; I10 Essential (primary) hypertension; J45.909 Unspecified asthma, uncomplicated; F41.9 Anxiety disorder, unspecified; F31.9 Bipolar disorder, unspecified; Z79.01 Long term (current) use of anticoagulants; Z79.899 Other long term (current) drug therapy; Z86.73 Personal history of transient ischemic attack (TIA), and cerebral infarction without residual deficits; Z86.718 Personal history of other venous thrombosis and embolism
CPT/HCPCS: 71046

== ENCOUNTER 2019-05-13 20:05 | Emergency (ER) | payer BC | END 2019-05-13 22:15 | disposition home or self-care (01) | LOC: ERS 20:05 | DX: J32.9 Chronic sinusitis, unspecified (principal); H66.91 Otitis media, unspecified, right ear; I10 Essential (primary) hypertension; J45.909 Unspecified asthma, uncomplicated | CPT/HCPCS: 99283 ==

== ENCOUNTER 2019-06-20 16:11 | Emergency (ER) | payer BC ==
[2019-06-20] MEDS ORDERED: Dexamethasone 4 MG TAB ONE (16:41)
--- NOTE | 2019-06-20 17:02 | RAD ---
EXAM: Two views chest PROVIDED CLINICAL HISTORY: Cough COMPARISON: 04/29/2019 FINDINGS: Cardiac and mediastinal silhouette appears within normal limits. Lungs appear free of significant opa city. No pleural fluid or pneumothorax apparent. IMPRESSION: No evidence for an acute cardiopulmonary process.
== END 2019-06-20 17:18 | disposition home or self-care (01) ==
LOC: ERS 16:11
DX: J06.9 Acute upper respiratory infection, unspecified (principal); I10 Essential (primary) hypertension; J45.909 Unspecified asthma, uncomplicated; F41.9 Anxiety disorder, unspecified; Z79.899 Other long term (current) drug therapy
CPT/HCPCS: 71046; 87804; 93005; 94640; J7620; J8540

== ENCOUNTER 2019-07-02 17:23 | Emergency (ER) | payer BC ==
--- NOTE | 2019-07-02 18:42 | RAD ---
Chest 2 views HISTORY: Cough. COMPARISON: 06/20/2019. FINDINGS: Cardiac silhouette is magnified by projection. Pulmonary vasculature are unremarkable. Medi astinum is midline. No lobar consolidation or evidence of pneumothorax. IMPRESSION: No active cardiopulmonary abnormalities are demonstrated.
== END 2019-07-02 19:26 | disposition home or self-care (01) ==
LOC: ERS 17:23
DX: J06.9 Acute upper respiratory infection, unspecified (principal); F31.9 Bipolar disorder, unspecified; F41.9 Anxiety disorder, unspecified; I10 Essential (primary) hypertension; J45.909 Unspecified asthma, uncomplicated; Z79.01 Long term (current) use of anticoagulants; Z79.51 Long term (current) use of inhaled steroids; Z79.899 Other long term (current) drug therapy; Z86.73 Personal history of transient ischemic attack (TIA), and cerebral infarction without residual deficits; Z86.718 Personal history of other venous thrombosis and embolism
CPT/HCPCS: 71046; 87081; 87430; 87804

== ENCOUNTER 2019-11-04 19:08 | Emergency (ER) | payer BC, SELFPAY ==
[2019-11-04 19:51] LABS: #Basophils 0.1 thou/uL (0.0-0.2); #Eosinphils 0.1 thou/uL (0.0-0.7); #Lymphocytes 1.7 thou/uL (1.20-3.40); #Monocytes 0.6 thou/uL (0.11-0.59); #Neutrophils 2.7 thou/uL (1.40-6.50); %Basophils 1.5 % (0.0-1.0); %Eosinophils 1.5 % (0.0-10.0); %Lymphocytes 33.3 % (21.0-51.0); %Monocytes 11.7 % (0.0-10.0); Hemoglobin 12.7 g/dL (12.0-16.0); Mean Corpuscular HGB CONC 32.9 g/dL (32.0-36.0); Mean Corpuscular Hemoglobin 31.2 pg (27.0-31.0); Mean Corpuscular Volume 94.9 fL (78.0-98.0); Mean Platelet Volume 8.7 fL (7.4-10.4); Platelet Count 214 thou/uL (130-400); Red Blood Cell (RBC) Count 4.08 mill/uL (4.20-5.40); White Blood Cell (WBC) Count 5.2 thou/uL (4.8-10.8)
[2019-11-04 19:59] LABS: PTT 35.9 SEC (22.9-36.1)
[2019-11-04 20:03] LABS: D-Dimer Test Less than 0.27 *mcg/mL (0.27-0.43)
[2019-11-04 20:23] LABS: INR-International Normal Ratio 1.8; Prothrombin Time 21.2 sec (12.0-14.7)
--- NOTE | 2019-11-04 20:35 | ULT ---
LEFT LOWER EXTREMITY VENOUS ULTRASOUND: History: Left lower extremity pain. History of previous DVT. Comparison: 04-15-19 Technique: Multiplanar grayscale and color doppler images were obtained in a left lower extremity bonny ous ultrasound. Spectral analysis of the doppler waveforms were performed. FINDINGS: The left common femoral vein, profunda femoral vein, superficial femoral vein, popliteal vein are nor mal in appearance without visible thrombus. These vessels demonstrate normal compression, flow, and a ugmentation. The posterior tibial vein and greater saphenous vein are also patent. IMPRESSION: No evidence of DVT. POS: EAA
== END 2019-11-04 20:51 | disposition home or self-care (01) ==
LOC: ERS 19:08
DX: M25.562 Pain in left knee (principal); R60.0 Localized edema; R79.1 Abnormal coagulation profile; J45.909 Unspecified asthma, uncomplicated; I10 Essential (primary) hypertension; F41.9 Anxiety disorder, unspecified; F31.9 Bipolar disorder, unspecified; Z79.899 Other long term (current) drug therapy; Z86.73 Personal history of transient ischemic attack (TIA), and cerebral infarction without residual deficits; Z86.718 Personal history of other venous thrombosis and embolism; Z79.01 Long term (current) use of anticoagulants
CPT/HCPCS: 36415; 85025; 85379; 85610; 85730

== ENCOUNTER 2019-12-20 17:11 | Emergency (ER) | payer OTHER, SELFPAY ==
[2019-12-21 14:20] LABS: SARS-CoV-2 MS2 Positive; SARS-CoV-2 N Gene Negative; SARS-CoV-2 S Gene Negative; SARS-CoV-2 orf1ab Negative
== END 2019-12-20 17:45 | disposition home or self-care (01) ==
LOC: ERS 17:11
DX: R51 Headache (principal); R11.0 Nausea; R19.7 Diarrhea, unspecified; Z20.828 Contact with and (suspected) exposure to other viral communicable diseases
CPT/HCPCS: 87635; 99284; U0003

== ENCOUNTER 2020-01-14 18:39 | Observation (INO) | payer OTHER, SELFPAY ==
[2020-01-14 20:21] LABS: #Basophils 0.1 thou/uL (0.0-0.2); #Eosinphils 0.1 thou/uL (0.0-0.7); #Lymphocytes 1.8 thou/uL (1.20-3.40); #Monocytes 0.5 thou/uL (0.11-0.59); #Neutrophils 2.4 thou/uL (1.40-6.50); %Basophils 1.3 % (0.0-1.0); %Eosinophils 1.8 % (0.0-10.0); %Lymphocytes 36.7 % (21.0-51.0); %Monocytes 10.6 % (0.0-10.0); %Neutrophils 49.5 % (42.0-75.0); Hemoglobin 13.5 g/dL (12.0-16.0); Mean Corpuscular HGB CONC 33.3 g/dL (32.0-36.0); Mean Corpuscular Hemoglobin 31.1 pg (27.0-31.0); Mean Corpuscular Volume 93.2 fL (78.0-98.0); Mean Platelet Volume 9.1 fL (7.4-10.4); Platelet Count 202 thou/uL (130-400); RBC Distribution Width 11.7 % (11.5-14.5); Red Blood Cell (RBC) Count 4.33 mill/uL (4.20-5.40); White Blood Cell (WBC) Count 4.8 thou/uL (4.8-10.8)
--- NOTE | 2020-01-14 20:23 | RAD ---
Exam: Chest one view HISTORY:Chest pain Comparison: 07/02/2019 FINDINGS: Cardiac silhouette: Normal Aorta: Unremarkable Pulmonary vessels: Normal Costophrenic angles: Clear LUNGS: No masses or consolidation. Pneumothorax: None Osseous abnormalities: None IMPRESSION: No acute cardiopulmonary process.
[2020-01-14 20:56] LABS: ALT (SGPT) 12 U/L (8-55); AST (SGOT) 17 U/L (5-34); Albumin 4.4 g/dL (3.5-5.0); Alkaline Phosphatase 84 U/L (40-110); Anion Gap 14 mmol/L (10-20); BUN (Urea Nitrogen) 18 mg/dL (9.8-20.1); Bilirubin, Total 0.3 mg/dL (0.2-1.2); CK (CPK) 60 U/L (29-168); Calc. Creatinine Clearance 0 mL/min (70-130); Calcium 9.4 mg/dL (7.8-10.44); Carbon Dioxide 27 mmol/L (22-29); Chloride 102 mmol/L (98-107); Estimated GFR-MDRD 59; Globulin 3.8 g/dL (2.4-3.5); Glucose 87 mg/dL (70-105); Lipase 19 U/L (8-78); Potassium 4.5 mmol/L (3.5-5.1); Protein, Total 8.2 g/dL (6.0-8.3); Sodium 138 mmol/L (136-145)
[2020-01-14] MEDS ORDERED: Lidocaine Viscous Sol 2% 15 ml UD Cup ONE (21:11)
[2020-01-14] MEDS ORDERED: Mag-Al 1200 mg/1200 mg/30 ML UDCUP ONE (21:11)
[2020-01-14 21:49] LABS: Bacteria/HPF None Seen HPF (None Seen); Bilirubin Negative (Negative); Blood, Urine Trace (Negative); Clarity Clear (Clear); Glucose, Urine (Dipstick) Normal (Negative); Ketone, Urine Negative (Negative); Leukocyte Negative Leu/uL (Negative); Nitrite Negative (Negative); Protein, Urine (Dipstick) Negative (Neg-Trace); Urobilinogen Normal mg/dL (Less than 2); WBC/HPF 0-3 HPF (0-3); pH, Urine 5.5 (5.0-9.0)
[2020-01-14] MEDS ORDERED: Acetaminophen 500 MG TAB ONE (23:27)
[2020-01-15 03:22] LABS: Troponin I Less than 0.010 ng/mL (< 0.028)
[2020-01-15 03:31] VITALS: BMI 32.6
[2020-01-15 04:55] LABS: Troponin I Less than 0.010 ng/mL (< 0.028)
[2020-01-15] MEDS ORDERED: Senokot S 8.6-50 MG TAB PO PRN ×2 (09:26→12:30)
[2020-01-15] MEDS ORDERED: traZODone HCl 50 MG TAB PO PRN (09:29)
[2020-01-15] MEDS ORDERED: traZODone HCl 150 MG TAB PO PRN (09:36)
[2020-01-15 10:10] LABS: INR-International Normal Ratio 3.9; Prothrombin Time 37.7 sec (12.0-14.7)
[2020-01-15 10:11] LABS: PTT 78.3 sec (22.9-36.1)
[2020-01-15] MEDS ORDERED: Acetaminophen 650 MG Suppository PR PRN (11:55)
[2020-01-15] MEDS ORDERED: Calcium Carbonate 500 MG ChewTAB PO PRN (11:55)
[2020-01-15 12:28] LABS: SARS-CoV-2 MS2 Positive; SARS-CoV-2 N Gene Negative; SARS-CoV-2 S Gene Negative; SARS-CoV-2 by NAA Not Detected (NotDetected); SARS-CoV-2 orf1ab Negative
[2020-01-15] MEDS ORDERED: Aspirin 81 mg Enteric Coated Tablet PO SCH (12:30)
--- NOTE | 2020-01-15 12:33 | HP ---
PRIMARY CARE PHYSICIAN: Margaret. CHIEF COMPLAINT: Chest pain x3 to 4 days. HISTORY OF PRESENT ILLNESS: The patient is a 49-year-old female with a past medical history significant for hypertension, TIAs, DVT, and asthma, who presents to the ER for the above complaint. The patient reports the development of left neck and left-sided chest pain over the past 3 to 4 days. She describes the pain as intermittent, sharp, worsening with deep inhalation, relieved by nothing. She denies any associated SOB, cough, heart palpitation or swelling to her lower extremities. She denies any abdominal pain, nausea, vomiting, or diarrhea. She denies any recent fever or chills. 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 She is anticoagulated on warfarin. In the ER, the patient's vital signs were stable, normal blood pressure, normal pulse, normal respirations, normal SpO2 saturation , afebrile. EKG, normal sinus rhythm, no ST elevations. Initial troponin was negative. Creatinine was 1.17. UA was unremarkable. The patient was given Tylenol and GI cocktail and admitted to the floor for further evaluation. PAST MEDICAL HISTORY: 1. Hypertension. 2. TIA. 3. DVT, on warfarin. 4. May-Thurner syndrome. 5. GERD. 6. Asthma. PAST SURGICAL HISTORY: 1. Gallbladder. 2. Left knee. 3. Left ankle. 4. Right carpal tunnel syndrome surgery. 5. Left eye surgery. SOCIAL HISTORY: The patient lives at home with her family. She drinks alcohol occasionally. She has no history of smoking or illicit drug use. She ambulates with no assistive devices. FAMILY HISTORY: Contributory for cardiac. Dad has a pacemaker, AICD, and heart failure. Both maternal grandmother and paternal grandmother have heart failure. Her mother has CAD. ALLERGIES: 1. SULFA. 2. CIPROFLOXACIN. 3. CEPHALEXIN. HOME MEDICATIONS: 1. Trazodone 50 mg p.o. at bedtime. 2. Warfarin 5 mg p.o. at bedtime. 3. Metoprolol 25 mg p.o. b.i.d. REVIEW OF SYSTEMS: All review of systems are negative unless otherwise stated in the HPI. PHYSICAL EXAMINATION: VITAL SIGNS: Temperature 98.3, blood pressure 132/74, heart rate 79, respirations 16, SpO2 is 100% on room air. Pain 3/10 to the left neck. The patient denies any chest pain at this time. CONSTITUTIONAL: The patient is alert and oriented to person, place, and time, in no acute distress. Nontoxic in appearance. HEAD: Atraumatic and normocephalic. EYES: PERRLA. Extraocular muscles intact. ENT: Oropharynx is clear. Uvula midline. No oral lesions. Moist mucous membranes. NECK: The patient has full range of motion. No cervical spinous tenderness. She is tender to palpation on her left trapezius muscles and sternocleidomastoid muscle reproduced by palpation. No bruising, no swelling, no visible lesions. RESPIRATORY/CHEST: Respirations are even and unlabored. Clear to auscultation. No rhonchi, wheezes, or rales. CARDIOVASCULAR: S1 and S2 appreciated. Regular rate and rhythm. No murmurs, rubs, or gallops. ABDOMEN: Soft and nontender. Active bowel sounds. No guarding. No rigidity. No rebound. Negative Rovsing sign. Negative Vogt sign. No abdominal bruit auscultated. BACK: Full range of motion. No central spinous tenderness. No CVA tenderness. EXTREMITIES: Upper extremities; full range of motion, normal strength, sensation intact. Palpable radial pulses. Lower extremities; full range of motion. Normal strength. Normal sensation. Palpable pedal pulses. No swelling. NEUROLOGIC: A and O x4. Moves all extremities well. No focal motor deficits. Normal gait. PSYCHIATRIC: Normal affect. A and O x3. Denies any suicidal or homicidal ideation. LABORATORY DATA AND DIAGNOSTICS: EKG, normal sinus rhythm, no ST elevation. Chest x-ray was negative for any acute cardiopulmonary process. Initial troponins were negative x3. Sodium 138, potassium 4.5, chloride 102, carbon dioxide 27. BUN 18, creatinine 1.17, glucose 87, calcium 9.4, bilirubin 0.3. AST 17, ALT 12, alkaline phosphatase 84, lipase 19. CK was 60. WBCs 4.8, hemoglobin 13.5, hematocrit 40.3, platelets 202, PT 37.7, INR 3.9, APTT 78.3. UA unremarkable. IMPRESSION AND PLAN: 1. Chest pain, rule out acute coronary syndrome. We will admit the patient to the telemetry floor for observation status. Expected length of stay less than 2 midnights. The patient presents with a HEART score of 4. Upon exam, no acute distress. Troponins were negative. EKG, normal sinus rhythm, no ST elevations. We will give an aspirin and a statin. We will check TSH, mag, and fasting lipid panel. We will order nuclear med cardiac stress test with ejection fraction. We will make the patient n.p.o. for now. 2. Supratherapeutic INR. The patient's INR is 3.9. She is on Coumadin 5 mg p.o. at bedtime. We will hold warfarin for now. Recheck level in the a.m. 3. Acute kidney injury, mild. The patient presents with a creatinine of 1.17. The patient's baseline appears to be 0.9 to 1. We will recheck level in the a.m. 4. Hypertension. We will hold the patient's home dose of metoprolol pending Stress testing. 5. May-Thurner syndrome. The patient has a history of DVT. She is on warfarin. INR supratherapeutic at 3.9. We will hold for now and recheck in the a.m. 6. History of transient ischemic attack x2. No focal motor deficits. 7. Asthma, chronic. The patient in no acute respiratory distress and does not have any home medications for asthma. We will continue to monitor respiratory status. 8. No DVT pharmacoprophylaxis. SCDs for deep venous thrombosis prophylaxis. Pepcid for gastrointestinal prophylaxis. The patient is a full code. 9. Discussed case with Dr. Arboleda. Job ID: [id number] MTDD
[2020-01-15] MEDS: Acetaminophen 325 MG TAB PO PRN (15:44)
[2020-01-15] MEDS ORDERED: Warfarin Sodium 5 MG TAB PO SCH (17:00)
[2020-01-15] MEDS ORDERED: Metoprolol Tartrate 25 MG TAB PO SCH (21:00)
[2020-01-15] MEDS ORDERED: Atorvastatin Calcium 40 MG TAB PO SCH (21:00)
[2020-01-15] MEDS ORDERED: WARFARIN SODIUM 5 MG PO SCH (21:00)
[2020-01-15] MEDS: Famotidine 20 MG TAB PO SCH (21:15)
[2020-01-16 04:17] LABS: #Eosinphils 0.1 thou/uL (0.0-0.7); #Lymphocytes 1.6 thou/uL (1.20-3.40); #Monocytes 0.5 thou/uL (0.11-0.59); #Neutrophils 2.5 thou/uL (1.40-6.50); %Basophils 0.6 % (0.0-1.0); %Eosinophils 1.7 % (0.0-10.0); %Lymphocytes 33.3 % (21.0-51.0); %Monocytes 11.3 % (0.0-10.0); %Neutrophils 53.1 % (42.0-75.0); Hemoglobin 13.1 g/dL (12.0-16.0); Mean Corpuscular HGB CONC 31.5 g/dL (32.0-36.0); Mean Corpuscular Hemoglobin 29.6 pg (27.0-31.0); Mean Corpuscular Volume 93.9 fL (78.0-98.0); Mean Platelet Volume 8.9 fL (7.4-10.4); Platelet Count 197 thou/uL (130-400); RBC Distribution Width 11.6 % (11.5-14.5); Red Blood Cell (RBC) Count 4.41 mill/uL (4.20-5.40); White Blood Cell (WBC) Count 4.8 thou/uL (4.8-10.8)
[2020-01-16 04:21] LABS: INR-International Normal Ratio 3.4; Prothrombin Time 34.1 sec (12.0-14.7)
[2020-01-16 04:22] LABS: PTT 75.7 sec (22.9-36.1)
[2020-01-16 04:40] LABS: Anion Gap 10 mmol/L (10-20); BUN (Urea Nitrogen) 15 mg/dL (9.8-20.1); Calc. Creatinine Clearance 92 mL/min (70-130); Calcium 9.5 mg/dL (7.8-10.44); Carbon Dioxide 25 mmol/L (22-29); Cardiac Risk 4.4 (Less than 4.5); Chloride 105 mmol/L (98-107); Cholesterol 209 mg/dl (< 200 Desired); Estimated GFR-MDRD 72; Glucose 100 mg/dL (70-105); HDL Cholesterol 48 mg/dL (>60 Neg Risk); LDL Cholesterol, Calculated 140 mg/dL; Potassium 4.1 mmol/L (3.5-5.1); Sodium 136 mmol/L (136-145); Triglycerides 104 mg/dL (Less than 150)
[2020-01-16] MEDS ORDERED: Sodium Chloride 0.9% 500 ML IVPB SCH (07:30)
[2020-01-16] MEDS: Famotidine 20 MG TAB PO SCH (07:56)
[2020-01-16] MEDS: Acetaminophen 325 MG TAB PO PRN ×2 (07:56→16:09)
[2020-01-16] MEDS ORDERED: Enoxaparin Sodium 40 MG/0.4 ML SYRINGE SC SCH (09:00)
[2020-01-16] MEDS ORDERED: Aspirin 81 mg Enteric Coated Tablet PO SCH (09:00)
[2020-01-16] MEDS ORDERED: Regadenoson 0.4 MG/5 ML SYRINGE ONE (10:28)
[2020-01-16] MEDS ORDERED: Iopamidol-370 76% 500 ML 1 ML ONE (10:39)
--- NOTE | 2020-01-16 11:11 | NM ---
Nuclear medicine Cardiac myocardial perfusion SPECT Ejection fraction study Wall motion cine: DATE:01/15/2020 10:57 AM INDICATION: Chest pain TECHNIQUE: Number of days:2 Rest Study: Technetium 99m-sestamibi (Cardiolite) dose:31.60 mCi Stress study: Technetium 99m-sestamibi (Cardiolite) dose:31.80 mCi FINDINGS: Cardiac (myocardial perfusion) SPECT There are no reversible myocardial perfusion defects. Ejection fraction study Left ventricular EF = 79% Wall motion cine Normal wall motion and thickening IMPRESSION: No evidence of reversible myocardial ischemia.
--- NOTE | 2020-01-16 14:31 | CT ---
CT NECK WITH CONTRAST: 01/16/20 INDICATIONS: Pain and swelling left side of neck. FINDINGS: Parotid glands appear unremarkable and symmetric. Submandibular glands also appear symmetric. There i s a mild bilateral prominence of the submandibular ductal structures within the submandibular glands . Mild prominence of Allyssa's duct; however, the findings are symmetric bilaterally. Thyroid is unremarkable. Nasopharynx unremarkable. Oropharynx is obscured by spray artifact from dental appliances which obscu re the base of tongue. Waldeyer's ring shows mild prominence of the palatine tonsils. The tonsils ar e symmetric. The hypopharynx appears unremarkable. Larynx unremarkable. [employer] space, parapharyngeal space, retropharyngeal space and carotid space appear unremarkable. Mild atherosclerotic changes seen in the carotid bulbs. Review of lymph node levels show several nonspecific level I submandibular nodes which are subcentime ter. Level II nodes are nonspecific with bilateral jugulodigastric nodes measuring 1.0 to 1.5 cm. The se represent IIA nodes. There are numerous IIB lymph nodes bilaterally. An enlarged IIB lymph node on the left measures 1 to 1.5 cm. No significant level III, IV or V lymph nodes. The subcutaneous tissues appear unremarkable. The paranasal sinuses appear clear. There are several missing teeth; however, no evidence of periapic al cysts or abscess change seen. The cervical spine appears unremarkable with mild degenerative changes. Images through the lung apices and upper mediastinum appear unremarkable. IMPRESSION: 1. Nonspecific cervical chain lymph nodes at level II. 2. Otherwise no acute process identified. POS: LIZANDRO
[2020-01-16 16:08] VITALS: BP 148/90; TEMP 97.7
[2020-01-16] MEDS ORDERED: Ketorolac Tromethamine 30 MG/ML VIAL IVP SCH (16:45)
[2020-01-16] MEDS ORDERED: Warfarin Sodium 2.5 MG TAB PO SCH (17:00)
[2020-01-16] MEDS ORDERED: Clindamycin 150 MG CAP PO SCH (18:00)
--- NOTE | 2020-01-17 08:03 | DIS ---
DATE OF ADMISSION: 01/15/2020 DATE OF DISCHARGE: 01/16/2020 DISCHARGE DIAGNOSES: 1. Atypical chest pain. 2. Left neck swelling, unclear etiology. 3. May-Thurner syndrome. 4. History of deep venous thrombosis. HOSPITAL COURSE: The patient is a 49-year-old female, who initially presented to the hospital with complaints of chest pain and left-sided neck pain. The patient underwent a cardiac workup. Her troponin x3 were negative. She did undergo a stress test, which indicated EF of 79% with no evidence of reversible ischemia. At this time, the patient was re-evaluated for pain on her left neck area. She had a soft tissue CT neck with contrast, which indicated that she had significant amount of nonspecific cervical chain lymph nodes. Otherwise, no acute process was noted. The patient at this time was put on antibiotics for possible infectious etiology and was then discharged home and asked to follow up with her primary care. She had significant tenderness to her sternocleidomastoid muscle, right around the external area of the muscle. Upon her oral examination, she did have some cobblestoning to the back of her palate. She also had some swelling on left side of her neck area. She does not have significant leukocytosis. No fevers. I started her on clindamycin and I will be discharging home with clindamycin for 7 days. I have asked her to specifically follow up with her primary care doctor in regard to this and also if something changes, she has to come back to the ER. PHYSICAL EXAMINATION: VITAL SIGNS: On discharge are as of the following; temperature of 97.7, pulse 90, blood pressure 148/90, respiratory rate 16, and oxygen saturation 100% on room air. GENERAL: She is awake, alert, and oriented x3. Does not appear in distress. CV: S1 and S2 present. No murmurs, rubs, or gallops. ABDOMEN: Soft and nontender. Bowel sounds are present x2. I also checked her blood pressures in both arms. One on the right was 148/90, the other was 166/91. The nurse was present in the room when we did this. I did explain to the patient in details that she will have to follow up with her primary specifically for this left neck pain. MEDICATIONS: Her home medications will be; 1. Trazodone 150 mg at bedtime. 2. Warfarin 5 mg at bedtime. 3. Metoprolol 25 mg twice a day. 4. Clindamycin 300 mg p.o. q.6 hours for 7 days. I have asked her to take an [id number] probiotic or take some yogurt. She did have some blood in her urine. She has had this before according to her. I told her that her RBCs were minor. To keep an eye on it. If this worsens, she will have to come back to the ER. She had no flank pain and no abdominal pain. The patient has had bleeding in the past and has required to go off her Coumadin. However, at this time, her H and H are stable and I do not think the need to take her off her warfarin given her history of DVT. I have told her that she will require to recheck her urine as an outpatient and if the urine turns significantly bloody, right now is just tea colored, she will have to come into the ER for further evaluation. Greater than 35 minutes was taken to discharge this patient and to explain the patient in details. Job ID: [id number]
[2020-01-17] MEDS ORDERED: Warfarin Sodium 5 MG TAB PO SCH (17:00)
--- NOTE | 2020-01-18 10:06 | STRESS ---
Acquisition Time: 2020-01-16 09:28:21 Total Exercise Time: 00:01:00 Test Indications: CHEST PAIN Medications: Protocol: LEXISCAN Max HR: 144 BPM 85% of Pred: 169 BPM Max BP: 142/086 mmHG Max Work Load: 1.0 METS THE PATIENT WAS INJECTED WITH LEXISCAN. SHE DID NOT DEVELOP CHEST PAIN. THERE WAS NO SIGNIFICANT ST DEPRESSION. AWAIT NUCLEAR IMAGES FOR DEFINITIVE DIAGNOSIS. Confirmed by NICOLAS ROSALES ([id number]), mapping editor NA GRAMAJO ([id number]) on 01/18/2020 10:06:01 AM Referred By: MD Emmanuelle RUBIO Confirmed By:NICOLAS ROSALES
--- NOTE | 2020-01-31 16:52 | EKG ---
Test Reason : Blood Pressure : / mmHG Vent. Rate : 072 BPM Atrial Rate : 072 BPM P-R Int : 154 ms QRS Dur : 080 ms QT Int : 374 ms P-R-T Axes : 040 -30 -01 degrees QTc Int : 409 ms Normal sinus rhythm Possible Left atrial enlargement Left axis deviation Left ventricular hypertrophy Abnormal ECG Confirmed by LAVELLE LOERA ([id number]), scientific publications editor EVELIA AVILES ([id number]) on 01/31/2020 4:50:34 PM Referred By: Confirmed By:LAVELLE Méndez
== END 2020-01-16 20:25 | disposition home or self-care (01) ==
LOC: ERS 18:39 → 2NO 01-15 00:06
PROVIDERS: ADMIT Internal Medicine; ATTEND Internal Medicine
DX: R07.89 Other chest pain (principal); R22.1 Localized swelling, mass and lump, neck; I87.1 Compression of vein; I10 Essential (primary) hypertension; K21.9 Gastro-esophageal reflux disease without esophagitis; J45.909 Unspecified asthma, uncomplicated; N17.9 Acute kidney failure, unspecified; Z86.718 Personal history of other venous thrombosis and embolism; Z79.01 Long term (current) use of anticoagulants; Z79.899 Other long term (current) drug therapy; Z86.73 Personal history of transient ischemic attack (TIA), and cerebral infarction without residual deficits; Z88.1 Allergy status to other antibiotic agents; Z88.2 Allergy status to sulfonamides; Z20.828 Contact with and (suspected) exposure to other viral communicable diseases
CPT/HCPCS: 36415; 70491; 71045; 78452; 80048; 80053; 80061; 81003; 81015; 82550; 83690; 83735; 84484; 85025; 85610; 85730; 87635; 93005; 93017; 96374; A9500; G0378; J1885; J2785; J7030; Q9967; U0003

== ENCOUNTER 2020-02-06 18:05 | Emergency (ER) | payer SELFPAY ==
[~2020-02-06 18:05] MED LIST changes: -ISOVUE-370 76%-LOCM 1 ML ONE; +Iopamidol-370 76% 500 ML 1 ML ONE
[2020-02-06] MEDS ORDERED: Acetaminophen 500 MG TAB ONE (18:56)
[2020-02-06] MEDS ORDERED: Metoclopramide HCl 10 MG/2 ML VIAL ONE (18:56)
[2020-02-06] MEDS ORDERED: Sucralfate 1 GM/10 ML UDCUP ONE (18:56)
[2020-02-06 19:11] LABS: #Eosinphils 0.1 thou/uL (0.0-0.7); #Lymphocytes 1.4 thou/uL (1.20-3.40); #Monocytes 0.5 thou/uL (0.11-0.59); %Basophils 0.9 % (0.0-1.0); %Eosinophils 1.5 % (0.0-10.0); %Lymphocytes 36.2 % (21.0-51.0); %Monocytes 11.7 % (0.0-10.0); %Neutrophils 49.7 % (42.0-75.0); Hemoglobin 12.7 g/dL (12.0-16.0); Mean Corpuscular HGB CONC 32.4 g/dL (32.0-36.0); Mean Corpuscular Hemoglobin 30.3 pg (27.0-31.0); Mean Corpuscular Volume 93.5 fL (78.0-98.0); Mean Platelet Volume 8.5 fL (7.4-10.4); Platelet Count 202 thou/uL (130-400); RBC Distribution Width 11.7 % (11.5-14.5)
[2020-02-06 19:14] LABS: Bilirubin Negative (Negative); Blood, Urine Trace (Negative); Clarity Clear (Clear); Glucose, Urine (Dipstick) Normal (Negative); Ketone, Urine Negative (Negative); Leukocyte Negative Leu/uL (Negative); Mucous/LPF Rare LPF (<2+); Nitrite Negative (Negative); Protein, Urine (Dipstick) Negative (Neg-Trace); RBC/HPF 0-3 HPF (0-3); Specific Gravity, Urine 1.019 (1.002-1.036); Urobilinogen Normal mg/dL (Less than 2); WBC/HPF 0-3 HPF (0-3)
[2020-02-06 19:15] LABS: Bacteria/HPF 1+ HPF (None Seen)
[2020-02-06 19:34] LABS: ALT (SGPT) 11 U/L (8-55); AST (SGOT) 16 U/L (5-34); Albumin 3.9 g/dL (3.5-5.0); Alkaline Phosphatase 77 U/L (40-110); Anion Gap 10 mmol/L (10-20); BUN (Urea Nitrogen) 10 mg/dL (9.8-20.1); Bilirubin, Total 0.2 mg/dL (0.2-1.2); Calc. Creatinine Clearance 0 mL/min (70-130); Calcium 9.2 mg/dL (7.8-10.44); Carbon Dioxide 28 mmol/L (22-29); Chloride 105 mmol/L (98-107); Estimated GFR-MDRD 62; Glucose 85 mg/dL (70-105); Lipase 21 U/L (8-78); Potassium 3.9 mmol/L (3.5-5.1); Protein, Total 7.9 g/dL (6.0-8.3); Sodium 139 mmol/L (136-145)
--- NOTE | 2020-02-06 20:05 | CT ---
CT abdomen and pelvis with IV contrast HISTORY: Abdomen pain. Nausea. FINDINGS: Small hiatal hernia. Lung bases are clear. Gallbladder is surgically absent. Solid organs of the abdomen are intact. No evidence of urinary trac t obstruction or calcification. Postoperative changes are apparent at the IVC bifurcation. There is calcification within the right co mmon iliac artery. Degenerative changes throughout the lumbar spine. Diverticula arise from the colon. No adjacent inflammation. IMPRESSION : No acute abnormalities are demonstrated. Diverticulosis. No evidence of diverticulitis. Small hiatal hernia.
--- NOTE | 2020-02-13 15:53 | EKG ---
Test Reason : Blood Pressure : / mmHG Vent. Rate : 065 BPM Atrial Rate : 065 BPM P-R Int : 152 ms QRS Dur : 080 ms QT Int : 402 ms P-R-T Axes : 067 -29 -05 degrees QTc Int : 418 ms Normal sinus rhythm with sinus arrhythmia Minimal voltage criteria for LVH, may be normal variant Borderline ECG Confirmed by NISH SMIPSON, EITAN ([id number]), features editor EVELIA AVILES ([id number]) on 02/13/2020 3:53:16 PM Referred By: Confirmed By:EITAN MOCK MD
== END 2020-02-06 21:38 | disposition home or self-care (01) ==
LOC: ERS 18:05
DX: R10.84 Generalized abdominal pain (principal); R11.0 Nausea; R51 Headache; I10 Essential (primary) hypertension; J45.909 Unspecified asthma, uncomplicated; F41.9 Anxiety disorder, unspecified; F31.9 Bipolar disorder, unspecified; Z86.718 Personal history of other venous thrombosis and embolism; Z86.73 Personal history of transient ischemic attack (TIA), and cerebral infarction without residual deficits; Z79.01 Long term (current) use of anticoagulants; Z79.899 Other long term (current) drug therapy
CPT/HCPCS: 74177; 80053; 81003; 81015; 83690; 85025; 93005; 96365; J2765; Q9967

== ENCOUNTER 2020-08-29 10:20 | Emergency (ER) | payer OTHER ==
[2020-08-29 11:18] LABS: Prothrombin Time 47.6 sec (12.0-14.7)
[2020-08-29 11:19] LABS: PTT 67.4 sec (22.9-36.1)
[2020-08-29 11:19] LABS: #Eosinphils 0.1 thou/uL (0.0-0.7); #Lymphocytes 1.5 thou/uL (1.20-3.40); #Monocytes 0.5 thou/uL (0.11-0.59); #Neutrophils 2.1 thou/uL (1.40-6.50); %Basophils 0.5 % (0.0-1.0); %Eosinophils 1.4 % (0.0-10.0); %Lymphocytes 35.2 % (21.0-51.0); %Monocytes 11.5 % (0.0-10.0); %Neutrophils 51.3 % (42.0-75.0); Hemoglobin 13.2 g/dL (12.0-16.0); Mean Corpuscular Hemoglobin 31.4 pg (27.0-31.0); Mean Corpuscular Volume 95.3 fL (78.0-98.0); Mean Platelet Volume 8.5 fL (7.4-10.4); Platelet Count 192 thou/uL (130-400); RBC Distribution Width 11.7 % (11.5-14.5); White Blood Cell (WBC) Count 4.2 thou/uL (4.8-10.8)
[2020-08-29 11:32] LABS: ALT (SGPT) 13 U/L (8-55); AST (SGOT) 15 U/L (5-34); Albumin 3.8 g/dL (3.5-5.0); Alkaline Phosphatase 72 U/L (40-110); Anion Gap 12 mmol/L (10-20); BUN (Urea Nitrogen) 14 mg/dL (9.8-20.1); Bilirubin, Total 0.2 mg/dL (0.2-1.2); Calc. Creatinine Clearance 0 mL/min (70-130); Calcium 9.3 mg/dL (7.8-10.44); Carbon Dioxide 24 mmol/L (22-29); Chloride 106 mmol/L (98-107); Globulin 4.1 g/dL (2.4-3.5); Glucose 95 mg/dL (70-105); Lipase 17 U/L (8-78); Potassium 4.3 mmol/L (3.5-5.1); Protein, Total 7.9 g/dL (6.0-8.3); Sodium 138 mmol/L (136-145)
[2020-08-29] MEDS ORDERED: Ondansetron PF 4 MG/2 ML Vial ONE (11:42)
[2020-08-29] MEDS ORDERED: Mag-Al 1200 mg/1200 mg/30 ML UDCUP ONE (11:50)
[2020-08-29] MEDS ORDERED: Pantoprazole 40 MG VIAL ONE (11:50)
[2020-08-29] MEDS ORDERED: Lidocaine Viscous Sol 2% 15 ml UD Cup ONE (11:50)
[2020-08-29 12:12] LABS: Bacteria/HPF None Seen HPF (None Seen); Bilirubin Negative (Negative); Blood, Urine Trace (Negative); Clarity Clear (Clear); Glucose, Urine (Dipstick) Normal (Negative); Ketone, Urine Negative (Negative); Leukocyte 500 Leu/uL (Negative); Nitrite Negative (Negative); Protein, Urine (Dipstick) Negative (Neg-Trace); RBC/HPF 0-3 HPF (0-3); Specific Gravity, Urine 1.008 (1.002-1.036); Urobilinogen Normal mg/dL (Less than 2); pH, Urine 5.5 (5.0-9.0)
== END 2020-08-29 13:48 | disposition home or self-care (01) ==
LOC: ERS 10:20
DX: R10.13 Epigastric pain (principal); R79.1 Abnormal coagulation profile; I10 Essential (primary) hypertension; Z79.899 Other long term (current) drug therapy
CPT/HCPCS: 36415; 80053; 81003; 81015; 83690; 84484; 85025; 85610; 85730; 93005; 96374; 96375; C9113; J2405

== ENCOUNTER 2022-02-08 12:17 | Emergency (ER) | payer SELFPAY ==
[~2022-02-08 12:17] MED LIST changes: +Iopamidol 370 76% 100 ML VIAL ONE; -Iopamidol-370 76% 500 ML 1 ML ONE
== END 2022-02-08 15:48 | disposition home or self-care (01) ==
LOC: ERS 12:17
DX: R13.10 Dysphagia, unspecified (principal); I10 Essential (primary) hypertension; J45.909 Unspecified asthma, uncomplicated; Z86.718 Personal history of other venous thrombosis and embolism; Z86.73 Personal history of transient ischemic attack (TIA), and cerebral infarction without residual deficits; Z79.01 Long term (current) use of anticoagulants; Z79.899 Other long term (current) drug therapy
CPT/HCPCS: 70491; Q9967

== ENCOUNTER 2022-07-07 08:37 | Emergency (ER) | payer SELFPAY | END 2022-07-07 10:17 | disposition home or self-care (01) | LOC: ERS 08:37 | DX: M25.512 Pain in left shoulder (principal); I10 Essential (primary) hypertension; K21.9 Gastro-esophageal reflux disease without esophagitis; Z79.01 Long term (current) use of anticoagulants ==

== ENCOUNTER 2022-10-12 15:32 | Outpatient (CLI) | payer OTHER | END 2022-10-12 15:33 | disposition home or self-care (01) | LOC: ULT 15:32 | PROVIDERS: ATTEND Nurse Practitioner Family | DX: M79.605 Pain in left leg (principal) | CPT/HCPCS: 93923 ==